=== PATIENT | female | born 1980 | race Caucasian/White ===

== ENCOUNTER 2023-04-18 10:00 | Outpatient (AMB) | payer OTHER, SELFPAY ==
[2023-04-18 10:11] VITALS: BP 116/62; PULSE 57; O2SAT 98; BMI 26.3
--- NOTE | 2023-04-18 10:11 | MHC.PC.OV ---
Vital Signs 04/18/23 10:11 Height 5 ft 5 in Weight 158 lb 2 oz BMI 26.3 BP 116/62 Blood Pressure Location Lt brachial Position Sitting Pulse 57 Pulse Source Pulse Oximeter Pulse Oximetry (%) 98 Oxygen Delivery Method Room Air Intake Visit Reasons: New patient-requesting physical Intake Note: Patient is here as a new patient would like thyroid check and hormones. Is last menstrual period known: Yes Last menstrual period: 03/25/23 Patient : No Allergies penicllin Allergy (Unknown, Uncoded 04/18/23 10:15) unknown Tobacco use date assessed: 04/18/23 Dental Screening Dental Screen Date: 04/18/23 Did you have a dental visit in the last 12 months?: Yes Did you have a dental problem in the last 6 months where you did not have access to dental care?: No Was dental information given to patient?: Patient has dentist HPI New patient-requesting physical HPI Details New patient Prior PCP:? PCP was [facility] in [facility] Last office visit/CPE:1 yr ago Acute issue(s): Menomettorhagia Saw Classifier Tender and no cause found. Started OCP x a few mos and normalized but not becoming irreg again Thyroid nodules L lobes and recommended repat US in 1 yr PMHx: Thyroid nodules, Irreg periods SurgHx:None FHx: Mom: Fibroids, Uterine CA, HTN Obesity. Dad: DM. SocHx: Nonsmoker, EtOH Occassional 1-2 dr[address] ALTAMIRANO none & no drugs PFSH Family History (Updated 04/18/23 @ 10:27 by Tracy Hoskins CMA) Mother High blood pressure Father Diabetes Paternal Grandmother High blood pressure Social History (Updated 04/18/23 @ 10:19 by Tracy Hoskins CMA) Household Members: Significant Other Housing: House Are you a primary childcare teacher to a significant other at home: No Do you presently have visiting nurse or other home services: No Alcohol intake: current Patient Tobacco Use Status: Never used Tobacco e-Cigarette/Vaping Use: Never Used Special nilam needs: No service: No Current occupational status: employed 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 1. Little interest or pleasure in doing things: not at all 2. Feeling down, depressed, or hopeless: not at all 3. Trouble falling or staying asleep, or sleeping too much: not at all 4. Feeling tired or having little energy: not at all 5. Poor appetite or overeating: not at all 6. Feeling bad about yourself - or that you are a failure or have let yourself or your family down: not at all 7. Trouble concentrating on things, such as reading the newspaper or watching television: not at all 8. Moving or speaking so slowly that other people could have noticed. Or the opposite - being so fidgety or restless that you have been moving around a lot more than usual: not at all 9. Thoughts that you would be better off or of hurting yourself in some way: not at all Total score: 0 Source: Developed by Drs. Srini Garcia, Gail Culp, Clifford Kern and colleagues, with an educational mariajose from [employer]. Thrive Questionnaire I am a: Patient What is your living situation today?: I have a steady place to live Within the past 12 months, did the food you bought not last and you didn't have the money to get more?: Never true Within the past 12 months, did you worry whether your food would run out before you got money to buy more?: Never true Do you have trouble paying for medicines?: No Do you have trouble getting transportation to medical appointments?: No Do you have trouble paying your heating and electricity bill?: No Do you have trouble taking care of your child, family member or friend?: No Do you have trouble with day-to-day activities such as bathing, preparing meals, shopping, managing finances, etc.?: No Are you currently unemployed and looking for a job?: No Are you interested in more education?: No LITA-7 AMB Questionnaire LITA-7 Feeling nervous, anxious, or on edge: 2 = More than half the days Not being able to stop or control worryin = More than half the days Worrying too much about different things: 3 = Nearly every day Trouble relaxin = More than half the days Being so restless that it is hard to sit still: 1 = Several days Becoming easily annoyed or irritable: 2 = More than half the days Feeling afraid as if something awful might happen: 1 = Several days Total LITA-7 score (0-4 normal; 5-9 mild; 10-14 moderate; 15-21 severe): 13 Source: Developed by Drs. Srini Garcia, Gail Culp, Clifford Kern and colleagues, with an educational mariajose from [employer]. Review of Systems Const Denies chills, Denies fatigue, Denies fever(s), Denies headache(s) and Denies weakness ENT Denies dizziness and Denies headache(s) Card Denies chest pain, Denies lightheadedness, Denies dyspnea and Denies other (Palpitations) Resp Denies cough, Denies dyspnea, Denies wheezing and Denies other ( shortness of breath) Musc Denies numbness and Denies tingling Neuro Denies dizziness, Denies headache(s), Denies numbness, Denies tingling, Denies paresthesias and Denies weakness Psych Denies anxiety and Denies depression Endo Denies fatigue Aller/Immun Denies wheezing Physical exam (Primary Care) Vital Signs: Last Vital Signs Pulse 57 04/18/23 10:11 BP 116/62 04/18/23 10:11 Pulse Ox 98 04/18/23 10:11 Oxygen Delivery Method Room Air 04/18/23 10:11 BMI result Body Mass Index 26.3 Tobacco/Smoking Status: Tobacco use Status Tobacco use date assessed 04/18/23 04/18/23 10:32 Patient Tobacco Use Status Never used Tobacco 04/18/23 10:32 e-Cigarette/Vaping Use Never Used 04/18/23 10:32 PHQ-9: PHQ-9 Score PHQ-9: Total score 0 04/18/23 11:03 Const General: no acute distress and well developed Nutritional Appearance: well nourished Orientation/consciousness: patient oriented x3 HENMT Head: Yes normocephalic and Yes atraumatic Eyes General: appearance normal, both eyes and all related structures Pupils: Equal, round and reactive pupils present EOM: EOMs intact bilaterally Resp Effort & Inspection: normal respiratory effort Auscultation: clear to auscultation bilaterally Cardio Rate: regular rate Rhythm: regular rhythm Heart sounds: S1 normal heart sound present, S2 normal heart sound present, no gallops, no murmurs and no rubs Neuro General: patient oriented x3 and gait normal Cranial nerves: Yes Equal, round and reactive pupils present Psych Affect: normal affect Assessment and Plan Assessment & Plan (1) Thyroid nodule: Code(s): E04.1 - Nontoxic single thyroid nodule Plan: History?of?left?thyroid?nodules?seen?on?ultrasound?when?year?ago and?radiology?recommended?repeat?in?1?year. Ordered?repeat?thyroid?ultrasound Requesting?prior?records?for?comparison (2) Menometrorrhagia: Code(s): N92.1 - Excessive and frequent menstruation with irregular cycle Plan: Referred?to?dehairing machine tender Checking?hormone?level (3) Breast cancer screening by mammogram: Code(s): Z. - Encounter for screening mammogram for malignant neoplasm of breast Plan: Patient?requests?order?for?mammogram.??Ordered. Last?year's?mammogram?was?BI-RADS?2?and?recommended?annual?screening. (4) Laboratory exam ordered as part of routine general medical examination: Code(s): Z00.00 - Encounter for general adult medical examination without abnormal findings Plan: Check?lab Orders: Orders Microalbumin, Random (w Creat) Today I10 - Essential (primary) hypertension UA and rflx microscopic Today Z00.00 - Encounter for general adult medical examination without abnormal findings Complete Blood Count Auto Diff Today Z00.00 - Encounter for general adult medical examination without abnormal findings Lutenizing Hormone Today N92.1 - Excessive and frequent menstruation with irregular cycle Follicle Stimulating Hormone Today N92.1 - Excessive and frequent menstruation with irregular cycle Comprehensive Hooper. Panel Fast Today Z00.00 - Encounter for general adult medical examination without abnormal findings Lipid Panel Today Z00.00 - Encounter for general adult medical examination without abnormal findings TSH reflex Free T4 Today Z00.00 - Encounter for general adult medical examination without abnormal findings US thyroid Today E04.1 - Nontoxic single thyroid nodule MM tomosynthesis screening BI Today Z12.31 - Encounter for screening mammogram for malignant neoplasm of breast Referrals AUTOMATIC CIGAR WRAPPER TENDER Referral N92.1 - Excessive and frequent menstruation with irregular cycle Coding Level of Care Code New Pt Level 3 (08997) Diagnoses Thyroid nodule E04.1 Menometrorrhagia N92.1 Breast cancer screening by mammogram Z12.31 Laboratory exam ordered as part of routine general medical examination Z00.00
== END 2023-04-18 11:20 | disposition home or self-care (01) ==
PROVIDERS: PCP Family Medicine; Visit Provider Family Medicine
DX: E04.1 Nontoxic single thyroid nodule (principal); N92.1 Excessive and frequent menstruation with irregular cycle; Z12.31 Encounter for screening mammogram for malignant neoplasm of breast; Z00.00 Encounter for general adult medical examination without abnormal findings
CPT/HCPCS: 99203

== ENCOUNTER 2023-04-18 11:24 | Outpatient (REF) | payer OTHER, SELFPAY ==
[2023-04-18 14:25] LABS: MANUAL DIFF FLAG NO
[2023-04-18 14:33] LABS: Appearance Urine Clear; Color Urine Yellow; Glucose Urine UA Negative (Negative); Leukocyte Esterase Urine Negative (Negative); Nitrite Urine Negative (Negative); PH 7.5 (5.0-9.0); UMIC TRIGGER UA YES; Urine Blood Small (1+) (Negative); Urine Ketones Negative (Negative); Urine Protein Negative (Neg-Trace)
[2023-04-18 14:36] LABS: Bacteria Urine None Seen (None Seen); Hyaline Casts Urine 0-2 /LPF (0-2); Squamous Epithelial Cell Urine 0-2 /HPF (0-2); WBC Urine 0-5 /HPF (0-5)
[2023-04-18 14:38] LABS: Basophils Absolute Auto 0.1 X10*3/uL (0.0-0.2); Basophils Percent Auto 1.1 % (0-2); Eosinophils Absolute Auto 0.2 X10*3/uL (0.0-0.4); Eosinophils Percent Auto 2.3 % (0-4); Hematocrit 34.4 % (37.0-47.0); Hemoglobin 10.6 g/dl (12.0-16.0); Imm Gran Abs Auto 0.01 X10*3/uL (0.00-0.03); Imm Gran Pct Auto 0.2 % (0.0-0.4); Lymphocytes Percent Auto 29.7 % (20-40); Mean Corpuscular HGB Conc 30.8 g/dl (31.0-35.0); Mean Corpuscular Hemoglobin 26.5 pg (27.0-33.0); Mean Platelet Volume 11.1 fL (9.4-12.3); Monocytes Absolute Auto 0.6 X10*3/uL (0.1-1.2); Monocytes Percent Auto 9.4 % (2-11); Neutrophils Absolute Auto 3.8 x10*3/uL (2.0-8.3); Neutrophils Percent Auto 57.3 % (45-73); Platelet Count 404 X10*3/uL (160-400); Red Cell Distribution Width 13.7 % (11.0-16.0); White Blood Count 6.6 X10*3/uL (4.8-10.8)
[2023-04-18 14:57] LABS: Alanine Aminotransferase 11 U/L (0-31); Albumin Level 4.1 g/dL (3.5-5.0); Alkaline Phosphatase 56 U/L (39-117); Anion Gap 14 (12-20); Aspartate Amino Transferase 19 U/L (5-31); Bilirubin Total 0.3 mg/dL (0.0-1.0); Blood Urea Nitrogen 12 mg/dL (9-16); Calcium 9.1 mg/dL (8.4-10.2); Carbon Dioxide 21 mmol/L (22-29); Chloride 108 mmol/L (96-108); Cholesterol 162 mg/dL (<200); Estimated Glomerular Filt Rate > 60; Glucose Fasting 86 mg/dL (60-99); HDL Cholesterol 65 mg/dL (>40); LDL Cholesterol Calculated 88 mg/dL (<100); Potassium 3.9 mmol/L (3.3-5.1); Sodium 139 mmol/L (135-145); Total Protein 7.2 g/dL (6.5-8.0); Triglycerides 48 mg/dL (<150)
[2023-04-18 15:17] LABS: TSH reflex Free T4 2.37 uIU/mL (0.32-4.0)
[2023-04-18 16:09] LABS: Creatinine Urine 115.61 mg/dL; Microalbum/Creatinine Ratio Ur 5.1 ug/mg cr (<30)
[2023-04-20 02:22] LABS: Lutenizing Hormone 27.9 mIU/mL
== END 2023-04-18 11:25 | disposition home or self-care (01) ==
LOC: HO.WFDLDS 11:24
PROVIDERS: Visit Provider Family Medicine
DX: Z00.00 Encounter for general adult medical examination without abnormal findings (principal); N92.1 Excessive and frequent menstruation with irregular cycle; I10 Essential (primary) hypertension
CPT/HCPCS: 36415; 80053; 80061; 81001; 82043; 82570; 83001; 83002; 84443; 85025

== ENCOUNTER 2023-05-09 10:51 | Outpatient (REF) | payer OTHER, SELFPAY ==
--- NOTE | ~2023-05-09 | MM_ITS ---
EXAMINATION: MM SCREENING DIGITAL BREAST TOMOSYNTHESIS, BILATERAL CLINICAL INFORMATION: Screening. Asymptomatic. COMPARISON: Mammography: This study is compared with prior exams dating back to 2021. TECHNIQUE: Digital breast tomosynthesis is performed in both the craniocaudal and mediolateral oblique views along with computer-aided detection (CAD). Synthesized 2D images are generated from the tomosynthesis. FINDINGS: The breasts are heterogeneously dense, which may obscure small masses (ACR BI-RADS breast composition Category c). There are no significant masses, abnormal calcifications, or other abnormalities. MM/MM tomosynthesis screening BI IMPRESSION: No mammographic evidence of malignancy. ASSESSMENT: BI-RADS BI-RADS 1 - Negative RECOMMENDATION: Routine annual mammography screening. 1 year F/U This examination should not preclude the clinical evaluation of a suspicious palpable abnormality. This patient's information was entered into a reminder system with a target due date for their next mammogram.
--- NOTE | ~2023-05-09 | US_ITS ---
EXAMINATION: US THYROID CLINICAL INFORMATION: Nontoxic single thyroid nodule. One-year follow up thyroid nodules. COMPARISON: None available. TECHNIQUE: Linear transducer grayscale and color Doppler examination with attention to the region of the thyroid. FINDINGS: SIZE: Measurements of the thyroid lobes and nodules are given in sagittal, anteroposterior and transverse dimensions respectively. Right Thyroid Lobe: 5.4 x 1.1 x 1.4 cm, volume 4.5 mL. Parenchyma: The gland echotexture is homogeneous. Thyroid vascularity is normal. Left Thyroid Lobe: 4.0 x 1.5 x 1.4 cm, volume 4.2 mL. Parenchyma: The gland echotexture is homogeneous. Thyroid vascularity is normal. Isthmus: 0.1 cm in maximum AP dimension. Estimated total number of nodules greater than or equal to 1 cm: 2. Supervisor Frame Assembly nodules are described as follows: 1. Location: Left mid pole. Size: 1.7 x 0.9 x 1.1 cm, volume 0.85 mL. Nodule characteristics: Composition: Mixed cystic and solid (1). Echogenicity: Isoechoic (1). Shape: Not taller than wide (0). Margins: Smooth (0). Echogenic Foci: None (0). ACR TI-RADS total points: 2 ACR TI-RADS category: 2 2. Location: Left lower pole. Size: 1.2 x 0.6 x 1.1 cm, volume 0.38 mL. Nodule characteristics: Composition: Solid (2). Echogenicity: Very hypoechoic (3). Shape: Not taller than wide (0). Margins: Smooth (0). Echogenic Foci: None (0). ACR TI-RADS total points: 5 ACR TI-RADS category: 4 NODES: No lymphadenopathy is seen in the tissue surrounding the thyroid gland. US/US thyroid IMPRESSION: Left thyroid lobe nodules are seen, as detailed. Recommend continued thyroid ultrasound surveillance. ACR TI-RADS RECOMMENDATION REFERENCE: Ultrasound-guided fine-needle aspiration, followup ultrasound, no further follow up. * TR1 (0 point) and TR2 (2 points): No FNA or follow up. * TR3 (3 points): FNA if more than or equal to 2.5 cm in maximum dimension, followup ultrasound in 1, 3 and 5 years if 1.5 to 2.4 cm in maximum dimension. * TR4 (4-6 points): FNA if more than or equal to 1.5 cm in maximum dimension, followup ultrasound in 1, 2, 3 and 5 years if 1 to 1.4 cm in maximum dimension. * TR5 (more than or equal to 7 points): FNA if more than or equal to 1 cm in maximum dimension, followup ultrasound every year for 5 years if 0.5 to 0.9 cm in maximum dimension. * TR3, TR4 or TR5 nodules that are below the size threshold for followup receive no follow up.
== END 2023-05-09 10:52 | disposition home or self-care (01) ==
LOC: HO.MAMMO 10:51
PROVIDERS: PCP Family Medicine; Visit Provider Family Medicine
DX: Z12.31 Encounter for screening mammogram for malignant neoplasm of breast (principal); E04.1 Nontoxic single thyroid nodule
CPT/HCPCS: 76536; 77063; 77067

== ENCOUNTER → 2023-05-09 11:45 | Outpatient (BNV) | payer OTHER, SELFPAY | PROVIDERS: PCP Family Medicine; Visit Provider Radiology Diagnostic Radiology | DX: Z12.31 Encounter for screening mammogram for malignant neoplasm of breast (principal) | CPT/HCPCS: 77063; 77067 ==

== ENCOUNTER 2023-05-23 07:37 | Outpatient (AMB) | payer OTHER, SELFPAY ==
--- NOTE | 2023-05-23 07:44 | MHC.OFFVIS ---
Intake Vital Signs 05/23/23 07:45 Height 5 ft 5 in Weight 156 lb 8.451 oz BMI 26.0 BP 110/60 Intake Visit Reasons: AUB/PCP referral Intake Note: skipping periods x 1 year ,c/o of heavy menses Paunch Trimmer Required: No Information Interpreted: non-clinical & clinical Business Continuity Specialist: Business Continuity Specialist Present (Sravani QIU) Accompanied by: Self / Same As Patient Allergies penicllin Allergy (Unknown, Uncoded 05/23/23 07:49) unknown Is last menstrual period known: Yes Last menstrual period: 04/18/23 HPI HPI Comments History of Present Illness Details Presenting referred from her PCP regarding abnormal uterine bleeding over the last year or so. In addition the patient is complaining of vaginal discharge with no associated itching or vaginal odor. The following workup was done so far: H&H= 10.6/34.4 TSH normal FSH/LH in the menopausal range Mammogram done, results are still pending [facility] Medical History Irregular periods Family History Mother High blood pressure Father Diabetes Paternal Grandmother High blood pressure Social History Household Members: Significant Other Housing: House Are you a primary critical care paramedic to a significant other at home: No Do you presently have visiting nurse or other home services: No 75 years or older and lives alone: No Alcohol intake: current Patient Tobacco Use Status: Never used Tobacco e-Cigarette/Vaping Use: Never Used Special nilam needs: No service: No Current occupational status: employed 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 Cognitive needs: No Hearing needs: No Vision needs: No Female Reproductive History Menstrual Date of last menstrual period: 04/18/23 Review of Systems Const All systems reviewed & are unremarkable except as noted in HPI and below Card Reports as per HPI Resp Reports as per HPI GI Reports as per HPI and Reports no additional complaints Reports as per HPI Physical Exam Vital Signs: Last Vital Signs BP 110/60 05/23/23 07:45 BMI result Body Mass Index 26.0 Const General: cooperative, healthy appearing and comfortable Chest Chest palpation & inspection: normal inspection of the chest and normal palpation of entire chest wall Breast/axilla inspection: normal inspection of the breasts and normal inspection of the axillae Breast/axilla palpation: normal palpation of the breasts, normal palpation of the axillae and no axillary lymphadenopathy Resp Effort & Inspection: normal respiratory effort Auscultation: clear to auscultation bilaterally Percussion: percussion normal Cardio Palpation: normal PMI Rate: regular rate Rhythm: regular rhythm Heart sounds: no murmurs and no rubs Peripheral pulses: Peripheral pulses 2+ throughout GI Inspection: Yes normal to inspection Palpation (GI): Soft to palpation, nontender, no guarding, not rigid and No hepatosplenomegaly present Percussion: Yes normal to percussion Auscultation: normal bowel sounds Rectal Exam - Female: deferred General: Yes bladder normal to palpation External Female Exam: No lesion Speculum Exam - Vagina: normal appearance of the vagina, normal palpation, normal vaginal discharge and not erythematous Speculum Exam - Cervix: normal appearance of the cervix and normal palpation Bimanual exam- vagina & uterus: normal bimanual exam, normal palpation, uterine size normal, bladder normal to palpation, consistency normal and normal palpation Bimanual Exam- Adnexa, other: normal adnexae, no masses and no tenderness Assessment & Plan Assessment & Plan (1) Abnormal uterine bleeding (AUB): Comment: FSH/LH in menopause range Mild anemia Code(s): N93.9 - Abnormal uterine and vaginal bleeding, unspecified Plan: Iron sulfate 325 mg p.o. q.d. Co testing done, GC and chlamydia taken CBC, TSH, HCG, and pelvic ultrasound ordered. Discussed with the patient the different causes of abnormal bleeding including thyroid disorders, uterine and ovarian pathology, endometrial hyperplasia, carcinoma and other potential causes. Discussed with the patient the work up done including CBC (showing mild anemia anemia), normal TSH, elevated FSH/LH in the menopausal range, pelvic Ultrasound, endometrial biopsy to r/o endometrial pathology. All questions answered and the patient verbalized understanding. Instructed the patient to schedule an appointment for an endometrial biopsy in 2 weeks. (2) Vaginal discharge: Code(s): N89.8 - Other specified noninflammatory disorders of vagina Plan: GC/CT with BV panel taken will check the results and treat accordingly. Orders: Orders US pelvic and transvaginal Today N93.9 - Abnormal uterine and vaginal bleeding, unspecified CT NG by PCR Today N89.8 - Other specified noninflammatory disorders of vagina, N93.9 - Abnormal uterine and vaginal bleeding, unspecified Pap Smear Today N89.8 - Other specified noninflammatory disorders of vagina, N93.9 - Abnormal uterine and vaginal bleeding, unspecified Bacterial Vaginosis Panel Today N89.8 - Other specified noninflammatory disorders of vagina, N93.9 - Abnormal uterine and vaginal bleeding, unspecified Coding Level of Care Code New Pt Level 3 (61046) Diagnoses Abnormal uterine bleeding (AUB) N93.9 Vaginal discharge N89.8
[2023-05-23 07:45] VITALS: BP 110/60; BMI 26.0
== END 2023-05-23 08:07 | disposition home or self-care (01) ==
PROVIDERS: PCP Family Medicine; Visit Provider Obstetrics & Gynecology
DX: N93.9 Abnormal uterine and vaginal bleeding, unspecified (principal); N89.8 Other specified noninflammatory disorders of vagina
CPT/HCPCS: 99203

== ENCOUNTER 2023-05-23 07:37 | Outpatient (REF) | payer OTHER, SELFPAY ==
[2023-05-23 16:52] LABS: CT PCR NOT DETECTED (Not Detect.); NG PCR NOT DETECTED (Not Detect.)
[2023-05-24 13:12] LABS: BV Int Neg Control Negative (Negative); BV Int Pos Control Positive (Positive)
[2023-05-27 11:59] LABS: HPV mRNA E6/E7 rflx Not Detected (Not Detected)
== END 2023-05-23 07:38 | disposition home or self-care (01) ==
LOC: HO.LNP 07:37
PROVIDERS: PCP Family Medicine; Visit Provider Obstetrics & Gynecology
DX: N93.9 Abnormal uterine and vaginal bleeding, unspecified (principal); N89.8 Other specified noninflammatory disorders of vagina
CPT/HCPCS: 0353U; 87480; 87510; 87624; 87660; 88142; 99202

== ENCOUNTER 2023-06-13 14:13 | Outpatient (REF) | payer OTHER, SELFPAY ==
--- NOTE | ~2023-06-13 | US_ITS ---
EXAMINATION: US PELVIS COMPLETE CLINICAL INFORMATION: Abnormal uterine bleeding COMPARISON: None TECHNIQUE: Transabdominal and transvaginal imaging was performed. FINDINGS: The uterus is of normal size and echogenicity measuring 8.5 x 4.1 x 5.0 cm. A regular homogeneous endometrium is identified measuring 0.7 cm. Nabothian cysts in the cervix. Both ovaries are of normal size and echogenicity. The right measures 2.5 x 1.6 x 1.1 cm for a volume of 2.4 mL. The left measures 3.9 x 2.0 x 2.3 cm for a volume of 9.5 mL. There is trace simple physiologic volume pelvic free fluid. US/US pelvic and transvaginal IMPRESSION: Unremarkable pelvic ultrasound.
== END 2023-06-13 14:14 | disposition home or self-care (01) ==
LOC: HO.US 14:13
PROVIDERS: PCP Family Medicine; Visit Provider Obstetrics & Gynecology
DX: N93.9 Abnormal uterine and vaginal bleeding, unspecified (principal)
CPT/HCPCS: 76830; 76856

== ENCOUNTER 2023-07-11 10:55 | Outpatient (AMB) | payer OTHER, SELFPAY ==
--- NOTE | 2023-07-11 11:03 | A.OFFPC_ITS ---
Vital Signs 07/11/23 11:04 Height 5 ft 5 in Weight 161 lb BMI 26.8 BP 90/48 L Blood Pressure Location Lt brachial Position Sitting Respiration 13 Pulse 61 Pulse Source Pulse Oximeter Pulse Oximetry (%) 99 Oxygen Delivery Method Room Air Intake Visit Reasons: Extended exam with f/u labs and health maint Intake Note: Patient is here for her physical, she had labs done in April of 2023. Patient reports she had a pelvic ultrasound and a thyroid ultrasound that she has not heard results back from yet. Patient reports she takes benedryl at night to fall asleep. Patient would like a referral to see an eye doctor. Patient would like a referral for therapy. 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 Labs were drawn 04/18/23. Reviewed labs with pt. Mild anemia. She reports she has always had this. Triglycerides 48. TC 162. LDL 88. HDL 65. Pt scores high on her PHQ-9 and LITA-7 questionnaires today. She is not on any medications for anxiety/depression. She reports she is currently going through separation and is also not been getting enough sleep. She reports she does not have a therapist and would like a referral to one. Denies any SI/HI. Hx of L thyroid nodules seen on ultrasound. Thyroid ultrasound 05/09/23 - L thyroid lobe nodules seen and recommended continued thyroid ultrasound surveillance. She f/u with [facility] July. She reports she has not had her period since April. Pt reports she exercises regularly. [facility] Medical History Irregular periods Family History Mother High blood pressure Father Diabetes Paternal Grandmother High blood pressure Social History (Updated 07/11/23 @ 11:17 by Nayeli Parsons CMA) Household Members: Significant Other Housing: House Are you a primary child care worker to a significant other at home: No Do you presently have visiting nurse or other home services: No 75 years or older and lives alone: No Alcohol intake: current Alcohol intake frequency: holidays/special occasions only Patient Tobacco Use Status: Never used Tobacco e-Cigarette/Vaping Use: Never Used Special nilam needs: No service: No Current occupational status: employed 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 1. Little interest or pleasure in doing things: several days 2. Feeling down, depressed, or hopeless: nearly every day 3. Trouble falling or staying asleep, or sleeping too much: nearly every day 4. Feeling tired or having little energy: nearly every day 5. Poor appetite or overeating: more than half the days 6. Feeling bad about yourself - or that you are a failure or have let yourself or your family down: several days 7. Trouble concentrating on things, such as reading the newspaper or watching television: nearly every day 8. Moving or speaking so slowly that other people could have noticed. Or the opposite - being so fidgety or restless that you have been moving around a lot more than usual: not at all 9. Thoughts that you would be better off or of hurting yourself in some way: not at all Total score: 16 Depression Screening Interpretation: Positive (Referring?for?therapist?and?starting?SSRI?medication) Depression Screening Done: Yes Source: Developed by Drs. Srini Garcia, Gail Culp, Clifford Kern and colleagues, with an educational mariajose from [employer]. Thrive Questionnaire Date Thrive assessed: 07/11/23 I am a: Patient What is your living situation today?: I have a steady place to live Within the past 12 months, did the food you bought not last and you didn't have the money to get more?: Never true Within the past 12 months, did you worry whether your food would run out before you got money to buy more?: Never true Do you have trouble paying for medicines?: No Do you have trouble getting transportation to medical appointments?: No Do you have trouble paying your heating and electricity bill?: No Do you have trouble taking care of your child, family member or friend?: No Do you have trouble with day-to-day activities such as bathing, preparing meals, shopping, managing finances, etc.?: No Are you currently unemployed and looking for a job?: No Are you interested in more education?: No Please select the resources that you would like help with: None Currently or been in a relationship where the following occur: no concerns reported AUDIT C Alcohol Use Questionnaire (AUDIT-C) 1. How often do you have a drink containing alcohol?: Never 3. How often do you have six or more drinks on one occasion?: Never Total Score: 0 LITA-7 AMB Questionnaire LITA-7 Date LITA - 7 assessed: 07/11/23 Feeling nervous, anxious, or on edge: 3 = Nearly every day Not being able to stop or control worryin = Not at all Worrying too much about different things: 3 = Nearly every day Trouble relaxin = Nearly every day Being so restless that it is hard to sit still: 3 = Nearly every day Becoming easily annoyed or irritable: 3 = Nearly every day Feeling afraid as if something awful might happen: 0 = Not at all Total LITA-7 score (0-4 normal; 5-9 mild; 10-14 moderate; 15-21 severe): 15 Source: Developed by Drs. Srini Garcia, Gail Culp, Clifford Kern and colleagues, with an educational mariajose from [employer]. LITA-7 Assessment Billing LITA-7 Assessment Tool: LITA-7 Assessment 89939 Review of Systems Const Denies chills, Denies fatigue, Denies fever(s), Denies headache(s) and Denies weakness Eyes Denies change in vision ENT Denies dizziness, Denies headache(s), Denies hearing loss, Denies nasal congestion, Denies sinus pain, Denies sinus pressure and Denies sore throat Card Denies chest pain, Denies lightheadedness, Denies dyspnea and Denies other (palpitations) Resp Denies cough, Denies dyspnea and Denies wheezing GI Denies abdominal pain, Denies melena, Denies hematochezia, Denies change in bowel habits, Denies dyspepsia and Denies nausea Denies hematuria and Denies dysuria Musc Denies abnormal gait, Denies myalgias, Denies arthralgias, Denies numbness and Denies tingling Skin/Breast Denies rash, Denies unusual bruising and Denies wounds Neuro Denies abnormal gait, Denies dizziness, Denies headache(s), Denies memory loss, Denies numbness, Denies Sensory deficit (Neuro), Denies tingling and Denies weakness Psych Reports anxiety, Reports depression and Denies memory loss Endo Denies cold intolerance, Denies fatigue, Denies heat intolerance, Denies polydipsia and Denies polyuria Akin/Lymph Denies easy bleeding and Denies easy bruising Aller/Immun Denies wheezing Physical exam (Primary Care) Vital Signs: Last Vital Signs Pulse 61 07/11/23 11:04 Resp 13 07/11/23 11:04 BP 90/48 L 07/11/23 11:04 Pulse Ox 99 07/11/23 11:04 Oxygen Delivery Method Room Air 07/11/23 11:04 BMI result Body Mass Index 26.8 Tobacco/Smoking Status: Tobacco use Status Tobacco use date assessed 07/11/23 07/11/23 11:14 Patient Tobacco Use Status Never used Tobacco 07/11/23 11:17 e-Cigarette/Vaping Use Never Used 07/11/23 11:17 PHQ-9: PHQ-9 Score PHQ-9: Total score 16 07/11/23 11:20 Depression Screening Interpretation: Positive (Referring?for?therapist?and?starting?SSRI?medication) Thrive Assessment: Date of Thrive Assessment Date Thrive assessed 07/11/23 07/11/23 11:20 Currently or been in a relationship where the following occur: no concerns reported Const General: no acute distress, well developed, alert and awake Nutritional Appearance: well nourished Orientation/consciousness: patient oriented x3 HENMT Head: Yes normocephalic and Yes atraumatic Ears: hearing grossly normal bilaterally and TM's normal bilaterally General nose exam: Normal external nose present and Normal nares present Mouth: Normal oral and palatal mucosa present and moist mucous membranes Teeth and gingiva: dentition normal Throat: Yes posterior oropharynx normal Eyes General: appearance normal, both eyes and all related structures Pupils: Equal, round and reactive pupils present and Pupil accommodation reflex normal EOM: EOMs intact bilaterally Neck Neck: Yes normal visual inspection, Yes no lymphadenopathy and Yes trachea midline Thyroid: Thyroid normal Carotids: no bruits Lymphatic: no lymphadenopathy noted Chest Chest palpation & inspection: normal inspection of the chest Resp Effort & Inspection: normal respiratory effort Auscultation: clear to auscultation bilaterally Cardio Rate: regular rate Rhythm: regular rhythm Heart sounds: S1 normal heart sound present, S2 normal heart sound present, no gallops, no murmurs and no rubs Bruits: no abdominal aortic bruits and no carotid bruits GI Palpation (GI): No Abdominal aortic bruit present, Soft to palpation, nontender, No hepatosplenomegaly present and No Rebound tenderness present Auscultation: normal bowel sounds General: Yes no CVA tenderness Back/Spine/Pelvis Back: no CVA tenderness Cervical Spine: cervical ROM normal and No Cervical spine tenderness Thoracic/Lumbar Spine: thoraco-lumbar ROM normal, No pain with thoraco-lumbar ROM, No thoracic spinal tenderness and No lumbar spinal tenderness Skin Lesions: no lesions Rashes: no rashes Trauma: no lacerations or abrasions Wounds: no wounds Nails: normal Neuro General: patient oriented x3 Cranial nerves: Yes Equal, round and reactive pupils present Cognition (Neuro): normal cognition Gait exam (Neuro): Normal gait present Motor exam (neuro): 5/5 motor strength present throughout Sensory Exam: No Sensory deficit (Neuro) Deep tendon reflexes (DTR's): Right patellar reflex intensity grade: 2+ and Left patellar reflex intensity grade: 2+ Extrem General: Yes normal to inspection and No edema Psych Appearance: grossly normal Affect: normal affect Attitude: cooperative Thought process: Normal thought process present Assessment and Plan Assessment & Plan (1) Depression with anxiety: Code(s): F41.8 - Other specified anxiety disorders Plan: Denies?SI?HI Increased?stressors?as?she?is?going?through?a?divorce Will?refer?for?therapist?and?will?start?sertraline. (2) Thyroid nodule: Code(s): E04.1 - Nontoxic single thyroid nodule Plan: Recent?ultrasound?recommends?continued?surveillance. Ultrasound?ordered?for?6?months (3) Irregular periods: Code(s): N92.6 - Irregular menstruation, unspecified Plan: Patient?had?had?regular?periods?and?these?have?stopped? Will?recheck?H&H She?should?follow-up?with?wire rope sales representative?as?recommended (4) Mild anemia: Code(s): D64.9 - Anemia, unspecified Plan: As?above,?patient?notes?that?periods?have?stopped. Will?continue?to?follow?H&H (5) Breast cancer screening by mammogram: Code(s): Z12.31 - Encounter for screening mammogram for malignant neoplasm of breast Plan: Mammogram?negative.??Will?continue?annual?screening (6) Screening for cervical cancer: Code(s): Z12.4 - Encounter for screening for malignant neoplasm of cervix Plan: Follow-up?with?wire rope sales representative?as?recommended (7) Adult general medical exam: Code(s): Z00.00 - Encounter for general adult medical examination without abnormal findings Plan: Stable Orders: Orders TSH reflex Free T4 Today E04.1 - Nontoxic single thyroid nodule, Z00.00 - Encounter for general adult medical examination without abnormal findings US thyroid 12/15/24 E04.1 - Nontoxic single thyroid nodule Complete Blood Count Auto Diff Today D64.9 - Anemia, unspecified, Z00.00 - Encounter for general adult medical examination without abnormal findings Referrals Nurse Navigator Referral F41.8 - Other specified anxiety disorders Medications: New sertraline 50 mg PO DAILY 30 tabs 2RF 30 days Coding Level of Care Code Est Pt Level 4 (32470) Diagnoses Depression with anxiety F41.8 Thyroid nodule E04.1 Irregular periods N92.6 Mild anemia D64.9 Breast cancer screening by mammogram Z12.31 Screening for cervical cancer Z12.4 Adult general medical exam Z00.00 Additional Codes LITA-7 Assessment Billing - LITA-7 Assessment Tool: LITA-7 Assessment 82854 ([id number])
[2023-07-11 11:04] VITALS: BP 90/48; PULSE 61; RESP 13; O2SAT 99; BMI 26.8
== END 2023-07-11 11:50 | disposition home or self-care (01) ==
PROVIDERS: PCP Family Medicine; Visit Provider Family Medicine
DX: Z00.00 Encounter for general adult medical examination without abnormal findings (principal); F41.8 Other specified anxiety disorders; E04.1 Nontoxic single thyroid nodule; N92.6 Irregular menstruation, unspecified; D64.9 Anemia, unspecified
CPT/HCPCS: 96127; 99214; 99396

== ENCOUNTER 2023-10-03 08:35 | Outpatient (AMB) | payer OTHER, SELFPAY ==
--- NOTE | 2023-10-03 08:49 | MHC.OFFVIS ---
Intake Vital Signs 10/03/23 08:56 Height 5 ft 6 in Weight 156 lb BMI 25.2 BP 118/68 Blood Pressure Location Lt brachial Position Sitting Intake Visit Reasons: US follow up/DO NOT RS Occupational Medicine Officer Required: No Information Interpreted: non-clinical & clinical Supervisor Film Processing: Supervisor Film Processing Present Accompanied by: Self / Same As Patient Allergies penicllin Allergy (Unknown, Uncoded 10/03/23 08:55) unknown Is last menstrual period known: Yes (last month) Post menopausal: Yes Patient : No HPI HPI Comments History of Present Illness Details Presenting for [facility] Medical History Irregular periods Family History Mother High blood pressure Father Diabetes Paternal Grandmother High blood pressure Social History Household Members: Significant Other Housing: House Are you a primary animal caregiver to a significant other at home: No Do you presently have visiting nurse or other home services: No 75 years or older and lives alone: No Alcohol intake: current Alcohol intake frequency: holidays/special occasions only Patient Tobacco Use Status: Never used Tobacco e-Cigarette/Vaping Use: Never Used Special nilam needs: No Patient : No service: No Current occupational status: employed 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 Current occupational exposures/hazards: No Sexual orientation: Unable to collect Gender identity: Unable to collect Cognitive needs: No Hearing needs: No Vision needs: Yes (Patient has a difficult time with night vision.) Review of Systems Const All systems reviewed & are unremarkable except as noted in HPI and below Reports as per HPI and Reports no additional complaints GI Reports no additional complaints Reports no additional complaints Physical Exam Vital Signs: Last Vital Signs BP 118/68 10/03/23 08:56 BMI result Body Mass Index 25.2 Office Procedures Endometrial Biopsy Details: The patient was counseled regarding the indication and benefits of endometrial sampling to rule out endometrial pathology including not limited to endometrial hyperplasia or endometrial cancer and others; The alternatives (Either do nothing vs. hysteroscopy D&C) & the risks were discussed with the patient including but not limited: pain, uterine perforation, bleeding, infection, possible injury to bladder, bowel, ureter, possible need for blood transfusion with all its possible risks. The patient verbalized understanding all questions answered and signed consent. Urine test done in the office was negative The patient was placed into the dorsal lithotomy position; a speculum was inserted in the vagina. Using aseptic technique for the procedure, the cervix was cleansed with Betadine. The anterior lip of the cervix was grasped with a single tooth tenaculum. The uterus was sounded to 7 cm with a 4 mm Pipelle was used. Tissues samples were obtained and placed in formalin, in a patient labeled container and sent to the pathology department. At the end of the procedure, there was minimal bleeding noted The patient tolerated the procedure well and was discharged in good condition with the following instructions: Nothing in the vagina until the bleeding stops. No sex until the bleeding stops, to call if any of the following occurs: fever (>100.4), flu-like symptoms, abdominal pain, heavy bleeding, four smelling vaginal discharge. The patient was instructed to schedule a Follow up appointment in 2 weeks to discuss pathology results of the biopsy and treatment options. This note was generated with a voice recognition program. Some errors may have been overlooked during the review of this note. Sometimes these errors may affect the content or meaning of a given sentence. [id number] Biopsy Results AMB Test Urine AMB Test Urine Negative Last Edit by Dolly Miller MA on 10/03/23 09:02 Results Reviewed Results Reviewed: Laboratory Last Values Tst Clinic Negative 10/03/23 09:01 Assessment & Plan Assessment & Plan (1) Abnormal uterine bleeding (AUB): Comment: FSH/LH in menopause range Mild anemia Code(s): N93.9 - Abnormal uterine and vaginal bleeding, unspecified Plan: EMB done, see procedure Orders: Orders AMB HCG Urine Test Today Z32.02 - Encounter for test, result negative AMB Endometrial Biopsy Today N93.9 - Abnormal uterine and vaginal bleeding, unspecified Coding Level of Care Code Procedure Only Diagnoses Abnormal uterine bleeding (AUB) N93.9 CPT Codes Endometrial Biopsy - CPT: 94596-[id number] Biopsy ([id number])
[2023-10-03 08:56] VITALS: BP 118/68; BMI 25.2
== END 2023-10-03 09:17 | disposition home or self-care (01) ==
PROVIDERS: PCP Family Medicine; Visit Provider Obstetrics & Gynecology
DX: N93.9 Abnormal uterine and vaginal bleeding, unspecified (principal); Z32.02 Encounter for pregnancy test, result negative
CPT/HCPCS: 58100

== ENCOUNTER 2023-10-03 08:35 | Outpatient (REF) | payer OTHER, SELFPAY | END 2023-10-03 08:36 | disposition home or self-care (01) | LOC: HO.LNP 08:35 | PROVIDERS: PCP Family Medicine; Visit Provider Obstetrics & Gynecology | DX: N93.9 Abnormal uterine and vaginal bleeding, unspecified (principal) | CPT/HCPCS: 58100; 81025; 88305 ==

== ENCOUNTER 2023-10-09 08:10 | Outpatient (REF) | payer OTHER, SELFPAY ==
[2023-10-09 11:34] LABS: Appearance Urine Clear; Color Urine Yellow; Glucose Urine UA Negative (Negative); Leukocyte Esterase Urine Negative (Negative); Nitrite Urine Negative (Negative); PH 6.5 (5.0-9.0); UMIC TRIGGER UA YES; Urine Blood Moderate (2+) (Negative); Urine Ketones Negative (Negative); Urine Protein Negative (Neg-Trace)
[2023-10-09 11:46] LABS: MANUAL DIFF FLAG NO
[2023-10-09 11:50] LABS: Basophils Percent Auto 0.9 % (0-2); Eosinophils Absolute Auto 0.1 X10*3/uL (0.0-0.4); Eosinophils Percent Auto 1.9 % (0-4); Hematocrit 34.7 % (37.0-47.0); Imm Gran Abs Auto 0.01 X10*3/uL (0.00-0.03); Imm Gran Pct Auto 0.2 % (0.0-0.4); Lymphocytes Absolute Auto 1.5 X10*3/uL (1.2-4.9); Lymphocytes Percent Auto 32.2 % (20-40); Mean Corpuscular HGB Conc 31.7 g/dl (31.0-35.0); Mean Corpuscular Hemoglobin 26.1 pg (27.0-33.0); Mean Corpuscular Volume 82.4 fL (80.0-98.0); Mean Platelet Volume 10.9 fL (9.4-12.3); Monocytes Absolute Auto 0.4 X10*3/uL (0.1-1.2); Monocytes Percent Auto 8.8 % (2-11); Neutrophils Absolute Auto 2.6 x10*3/uL (2.0-8.3); Platelet Count 366 X10*3/uL (160-400); Red Blood Count 4.21 X10*6/uL (4.20-5.50); Red Cell Distribution Width 15.8 % (11.0-16.0); White Blood Count 4.7 X10*3/uL (4.8-10.8)
[2023-10-09 12:00] LABS: Bacteria Urine None Seen (None Seen); Calcium Oxalate Crystals Urine Present; Squamous Epithelial Cell Urine 0-2 /HPF (0-2); WBC Urine 0-5 /HPF (0-5)
[2023-10-09 12:17] LABS: TSH reflex Free T4 2.89 uIU/mL (0.32-4.0)
== END 2023-10-09 08:11 | disposition home or self-care (01) ==
LOC: HO.WFDLDS 08:10
PROVIDERS: Visit Provider Family Medicine
DX: Z00.00 Encounter for general adult medical examination without abnormal findings (principal); E04.1 Nontoxic single thyroid nodule; D64.9 Anemia, unspecified
CPT/HCPCS: 36415; 81001; 84443; 85025

== ENCOUNTER → 2023-10-24 16:39 | Outpatient (AMB) | payer OTHER, SELFPAY ==
--- NOTE | 2023-09-19 15:40 | MHC.PC.OV ---
Intake Visit Reasons: f/u labs Allergies penicllin Allergy (Unknown, Uncoded 08/01/23 14:00) unknown Tobacco use date assessed: 08/01/23 [facility] Medical History Irregular periods Family History Mother High blood pressure Father Diabetes Paternal Grandmother High blood pressure Social History Household Members: Significant Other Housing: House Are you a primary animal care service worker to a significant other at home: No Do you presently have visiting nurse or other home services: No 75 years or older and lives alone: No Alcohol intake: current Alcohol intake frequency: holidays/special occasions only Patient Tobacco Use Status: Never used Tobacco e-Cigarette/Vaping Use: Never Used Special nilam needs: No service: No Current occupational status: employed 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 Srini Garcia, Gail Culp, Clifford Kern and colleagues, with an educational marijaose from [employer]. Physical exam (Primary Care) Tobacco/Smoking Status: Tobacco use Status Tobacco use date assessed 07/11/23 07/11/23 11:14 Patient Tobacco Use Status Never used Tobacco 07/11/23 11:17 e-Cigarette/Vaping Use Never Used 07/11/23 11:17 Thrive Assessment: Date of Thrive Assessment Date Thrive assessed 07/11/23 07/11/23 11:20 Telehealth Telehealth Location of provider rendering services: practice address Location of patient: address on file Patient Identification confirmed using: Name, : Yes Telehealth method: voice only Patient verbally consented to treatment: Yes Patient verbally consented to billing insurance company: Yes Patient informed of any privacy concerns related to visit: Yes Coding
--- NOTE | 2023-10-24 16:32 | MHC.PC.OV ---
Intake Visit Reasons: f/u labs Intake Note: Patient is following up on her blood work today. Allergies penicllin Allergy (Unknown, Uncoded 10/24/23 16:35) unknown Medication List - Last Reconciled 10/24/23 by Raf English MD sertraline 50 mg PO DAILY 90 days Tobacco use date assessed: 10/24/23 Dental Screening Dental Screen Date: 10/24/23 HPI f/u labs HPI Details 42 y/o female presents to f/u labs via telemedicine. Labs were drawn 10/09/23. Reviewed labs with pt. Ongoing mild anemia, stable. [facility] Medical History Irregular periods Family History Mother High blood pressure Father Diabetes Paternal Grandmother High blood pressure Social History Household Members: Significant Other Housing: House Are you a primary summer child caregiver to a significant other at home: No Do you presently have visiting nurse or other home services: No 75 years or older and lives alone: No Alcohol intake: current Alcohol intake frequency: holidays/special occasions only Patient Tobacco Use Status: Never used Tobacco e-Cigarette/Vaping Use: Never Used Special nilam needs: No service: No Current occupational status: employed 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 Srini Garcia, Gail Culp, Clifford Kern and colleagues, with an educational mariajose from [employer]. Physical exam (Primary Care) Tobacco/Smoking Status: Tobacco use Status Tobacco use date assessed 10/24/23 10/24/23 16:37 Patient Tobacco Use Status Never used Tobacco 10/24/23 16:37 e-Cigarette/Vaping Use Never Used 10/24/23 16:37 Thrive Assessment: Date of Thrive Assessment Date Thrive assessed 07/11/23 10/24/23 16:37 Telehealth Telehealth Location of provider rendering services: practice address Location of patient: address on file Patient Identification confirmed using: Name, : Yes Telehealth method: voice only Patient verbally consented to treatment: Yes Patient verbally consented to billing insurance company: Yes Patient informed of any privacy concerns related to visit: Yes Minutes spent on Phone/Video with Pt.: 5 Assessment and Plan Assessment & Plan (1) Mild anemia: Code(s): D64.9 - Anemia, unspecified Plan: Mild?anemia?which?is?stable?and?may?have?improved?slightly Likely?secondary?to?abnormal?uterine?bleeding/irregular?periods. She?is?followed?by?Ed?[facility]?and?has?a?follow-up?appointment.??Had?recent?endometrial?biopsy. (2) Thyroid nodule: Code(s): E04.1 - Nontoxic single thyroid nodule Plan: History?of?thyroid?nodules. She?has?a?six-month?follow-up?ultrasound?in?December We?can?follow-up?shortly?thereafter?to?review TSH?remains?in?normal?range (3) Depression with anxiety: Code(s): F41.8 - Other specified anxiety disorders Plan: Patient?tried?sertraline?which?initially?was?helping?but?began?to?cause?increased?drowsiness?so?she?stopped?it Will?trial?a?lower?dose;?changing?sertraline?50?mg?daily?to?25?mg?daily If?she?runs?into?the?same?problem?she?can?discontinue?this?and?we?will?try?a?different?SSRI?at?her?next?appointment. Medications: Changed From sertraline 50 mg PO DAILY 90 days 90 tabs 2RF To sertraline 25 mg PO DAILY 90 days 90 tabs 2RF Coding Level of Care Code Tele Est Pt Level 2 (66385) Diagnoses Mild anemia D64.9 Thyroid nodule E04.1 Depression with anxiety F41.8
== END ==
PROVIDERS: PCP Family Medicine; Visit Provider Family Medicine
DX: D64.9 Anemia, unspecified (principal); E04.1 Nontoxic single thyroid nodule; F41.8 Other specified anxiety disorders
CPT/HCPCS: 99212

== ENCOUNTER 2023-11-07 08:24 | Outpatient (AMB) | payer OTHER, SELFPAY ==
[2023-11-07 08:27] VITALS: BMI 24.9
--- NOTE | 2023-11-07 08:27 | A.OFFVIS_ITS ---
Vital Signs 11/07/23 08:27 11/07/23 08:31 Height 5 ft 6 in 5 ft 6 in Weight 154 lb 5.177 oz 154 lb BMI 24.9 24.9 BP 86/52 L Intake Visit Reasons: EMB results Presidential Support Specialist Required: No Allergies penicllin Allergy (Unknown, Uncoded 11/07/23 08:31) unknown Is last menstrual period known: No Post menopausal: No HPI Comments Details: The patient is presenting for follow-up to discuss the results of her abnormal uterine bleeding workup and options of treatment. The following workup was done.: H&H= .7 TSH, hCG, GC and chlamydia were negative. FSH/LH 96/27.9 Endometrial biopsy pathology showed the following: Superficial fragments of benign proliferative endometrium; no atypia or carcinoma Co testing was done in 06/06 was negative. Mammogram was BI-RADS 1 Pelvic ultrasound was unremarkable. [facility] Medical History Irregular periods Family History Mother High blood pressure Father Diabetes Paternal Grandmother High blood pressure Social History Household Members: Significant Other Housing: House Are you a primary resident care aide to a significant other at home: No Do you presently have visiting nurse or other home services: No 75 years or older and lives alone: No Alcohol intake: current Alcohol intake frequency: holidays/special occasions only Patient Tobacco Use Status: Never used Tobacco e-Cigarette/Vaping Use: Never Used Special nilam needs: No service: No Current occupational status: employed 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 Current occupational exposures/hazards: No Sexual orientation: Unable to collect Gender identity: Unable to collect Cognitive needs: No Hearing needs: No Vision needs: Yes (Patient has a difficult time with night vision.) Female Reproductive History Menstrual control method: none Date of last pap smear: 05/23/23 (negative) Review of Systems Const All systems reviewed & are unremarkable except as noted in HPI and below Reports as per HPI and Reports no additional complaints GI Reports no additional complaints Reports no additional complaints Physical Exam Vital Signs: Last Vital Signs BP 86/52 L 11/07/23 08:31 BMI result Body Mass Index 24.9 Office Procedures IUD Insert/Removal Details Details: The patient is presenting for Mirena IUD insertion Urine test was done in the office and was negative; All the contraindications were excluded. The following possible complications were discussed with the patient: Intrauterine , Ectopic , Sepsis, Pelvic Infection, Irregular Bleeding and Amenorrhea, Perforation, Expulsion, Ovarian Cysts, Breast Cancer, The following adverse effects were discussed with the patient: alteration of menstrual bleeding pattern, including: unscheduled uterine bleeding decreased uterine bleeding increased scheduled uterine bleeding female genital tract bleeding ,amenorrhea , genital discharge , vulvovaginitis , breast pain , benign ovarian cyst and associated complications , dysmenorrhea , Gastrointestinal disorders abdominal/pelvic pain, headache/migraine , back pain , acne , depression Alternative options were discussed with the patient including but not limited: control pills, patch, NuvaRing, Depo-medroxyprogesterone acetate, Nexplanon, copper IUD, sterilization, vasectomy, others The procedure was explained in detail to patient , at the end patient signed the informed consent obtained. A no touch technique was used throughout the procedure. A speculum was placed into vagina and cervix was cleaned with betadine). A tenaculum was placed. A plastic sound was advanced through the external and internal os until it reached the fundus of the uterus, the depth was 8 cm. The sound was then withdrawn. The IUD was loaded in a sterile manner and advanced into position. The string was visualized and cut to 3 cm. Tenaculum site hemostatic. All instruments removed from vagina. Patient tolerated the procedure well. NO complications were noted. Patient was instructed to call for fever over 100.4, significant pain unrelieved by Motrin, IUD expulsion, heavy bleeding, or abnormal discharge. In addition, the following clinical considerations were discussed with the patient to call for removal: A stroke or heart attack ,Very severe or migraine headaches ,Unexplained fever ,Yellowing of the skin or whites of the eyes, as these may be signs of serious liver problems , or suspected , Pelvic pain or pain during sex ,HIV positive seroconversion in herself or her partner , Possible exposure to sexually transmitted infections Unusual vaginal discharge or genital sores , severe vaginal bleeding or bleeding that lasts a long time, or if she misses a menstrual period, Inability to feel Mirena's threads Counseled the patient that the IUD does not protect against STI's, recommended use of condoms for the first 7 days post insertion and explained to the patient that condoms are recommended for patients at risk for sexually transmitted infections. Informed the patient that Mirena IUD is FDA approved for 8 years for contraception for 5 years for the treatment of heavy menses/proliferative endometrium Instructed the patient to schedule a Follow up appointment in 4 to 6 weeks following insertion. This note was generated with a voice recognition program. Some errors may have been overlooked during the review of this note. Sometimes these errors may affect the content or meaning of a given sentence. 11950-GBX Insertion Procedure code (CPT) selection complete Office Meds Mirena 21 mcg/24 hours (8 yrs) 52 mg intrauterine device Performing Provider: Shree Osman MD Performing Location: [facility] Documented (not given) by: Shree Osman MD on 11/07/23 09:00 Dose Route Admin Location Dispensed Lot Number Expiration Date FORMERLY NAMED [facility] Extrusion Die Template Maker 1 device intrauterine ea Assessment & Plan Assessment & Plan (1) Abnormal uterine bleeding (AUB): Comment: FSH/LH in menopause range with proliferative endometrium on EMB pathology Mild anemia Code(s): N93.9 - Abnormal uterine and vaginal bleeding, unspecified Category: Medical Plan: Discussed with the patient the results of the pathology of the endometrial scrapings showing proliferative endometrium. Discussed with the patient the sensitivity, specificity, positive and negative predictive value, of endometrial biopsy in detecting endometrial pathology including but not limited to endometrial hyperplasia, cancer and other pathology; in addition discussed the patient the pathology of the endometrium in post menopause is associated with an increase in the risk of endometrial hyperplasia and malignancy in patient with preferred of endometrial pathology in menopause. Recommended to the patient progesterone treatment , levo norgestrel IUD for p.o. progestins in addition to repeat endometrial biopsy every 3 months for a year. All pros and cons, risks and benefits of each were discussed with the patient. The patient decided to proceed with Mirena IUD. so a more detailed discussion about it was conducted including mechanism of action, risks (uterine perforation, infection, injury to bladder, bowel, displacement, increase in the risk of breast cancer and others) benefits (decrease the risk of future endometrial hyperplasia and carcinoma of the endometrium ...). GC/CT were taken and were negative and the patient would like Mirena IUD insertion done today, Mirena IUD inserted, see procedure note ; in addition , recommended repeat endometrial biopsy every 3 months for 1 year. Instructed the patient to call in case is vaginal bleeding bleeding recurs, schedule endometrial biopsy in 3 months and IUD follow-up appointment within a month. All questions answered and the patient verbalized understanding and agreed with the plan. (2) Encounter for IUD insertion: Code(s): Z30.430 - Encounter for insertion of intrauterine contraceptive device Category: Medical Plan: Mirena IUD inserted, see procedure Orders: Orders AMB IUD Insertion/Removal - Practice Supplied Today N93.9 - Abnormal uterine and vaginal bleeding, unspecified Medications: New Mirena (levonorgestrel) 1 device intrauterine ONCE 1 ea 0RF NS N93.9 - Abnormal uterine and vaginal bleeding, unspecified Coding Level of Care Code Est Pt Level 3 (50161) Procedure Only Diagnoses Abnormal uterine bleeding (AUB) N93.9 Encounter for IUD insertion Z30.430 CPT Codes Details - CPT: 50882-ZGJ Insertion ([id number])
[2023-11-07 08:31] VITALS: BP 86/52; BMI 24.9
== END 2023-11-07 09:24 | disposition home or self-care (01) ==
PROVIDERS: PCP Family Medicine; Visit Provider Obstetrics & Gynecology
DX: N93.9 Abnormal uterine and vaginal bleeding, unspecified (principal); Z30.430 Encounter for insertion of intrauterine contraceptive device
CPT/HCPCS: 58300; 99213

== ENCOUNTER → 2023-11-07 08:24 | Outpatient (BNVA) | payer OTHER, SELFPAY | PROVIDERS: PCP Family Medicine; Visit Provider Obstetrics & Gynecology | DX: Z30.430 Encounter for insertion of intrauterine contraceptive device (principal); N93.9 Abnormal uterine and vaginal bleeding, unspecified | CPT/HCPCS: 58300; 99212; J7298 ==

== ENCOUNTER 2023-12-11 08:33 | Outpatient (AMB) | payer OTHER, SELFPAY ==
--- NOTE | 2023-12-11 08:53 | A.OFFVIS_ITS ---
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 The patient has no complaints periods are light and not painful. [facility] Medical History Irregular periods Family History Mother High blood pressure Father Diabetes Paternal Grandmother High blood pressure Social History Household Members: Significant Other Housing: House Are you a primary career discovery teacher to a significant other at home: No Do you presently have visiting nurse or other home services: No 75 years or older and lives alone: No Alcohol intake: current Alcohol intake frequency: holidays/special occasions only Patient Tobacco Use Status: Never used Tobacco e-Cigarette/Vaping Use: Never Used Special nilam needs: No service: No Current occupational status: employed 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 Current occupational exposures/hazards: No Sexual orientation: Unable to collect Gender identity: Unable to collect Cognitive needs: No Hearing needs: No Vision needs: Yes (Patient has a difficult time with night vision.) Review of Systems Const All systems reviewed & are unremarkable except as noted in HPI and below Physical Exam Vital Signs: Last Vital Signs BP 106/66 12/11/23 08:58 BMI result Body Mass Index 24.5 General: Yes no CVA tenderness External Female Exam: normal external appearance and normal appearance of the urethra Speculum Exam - Vagina: normal appearance of the vagina, normal palpation, no lesions and no masses Speculum Exam - Cervix: normal appearance of the cervix, normal palpation, no lesions, no masses, nontender and Other cervical findings present (IUD thread in place) Bimanual exam- vagina & uterus: normal bimanual exam, normal palpation, uterine size normal, normal palpation, uterine shape normal, No Cervical tenderness present and non-tender Bimanual Exam- Adnexa, other: normal adnexae Back/Spine/Pelvis Back: no CVA tenderness Results AMB Test Urine AMB Test Urine Negative Last Edit by Sravani Bradshaw CMA on 09:01 Results Reviewed Results Reviewed: Laboratory Last Values [facility]st Clinic Negative 12/11/23 09:01 Assessment & Plan Assessment & Plan (1) IUD check up: Code(s): Z30.431 - Encounter for routine checking of intrauterine contraceptive device Category: Medical Plan: UPT done in the office was negative. Discussed with the patient the finding on physical exam, IUD string in place, the patient was reassured. Instructions given to patient to call in case of temperature above 100.4, severe cramping/pelvic pain, abnormal discharge or abnormal uterine bleeding or if she misses her menstrual cycle. Otherwise follow-up at her annual exam appointment. All questions answered, the patient verbalized understanding. Orders: Orders AMB HCG Urine Test Today Z32.02 - Encounter for test, result negative Coding Level of Care Code Est Pt Level 3 (11214) Diagnoses IUD check up Z30.431
[2023-12-11 08:58] VITALS: BP 106/66; BMI 24.5
== END 2023-12-11 12:15 | disposition home or self-care (01) ==
PROVIDERS: PCP Family Medicine; Visit Provider Obstetrics & Gynecology
DX: Z30.431 Encounter for routine checking of intrauterine contraceptive device (principal); Z32.02 Encounter for pregnancy test, result negative
CPT/HCPCS: 99213

== ENCOUNTER → 2023-12-11 08:33 | Outpatient (BNVA) | payer OTHER, SELFPAY | PROVIDERS: PCP Family Medicine; Visit Provider Obstetrics & Gynecology | DX: Z30.431 Encounter for routine checking of intrauterine contraceptive device (principal) | CPT/HCPCS: 81025; 99212 ==

== ENCOUNTER 2023-12-19 08:58 | Outpatient (REF) | payer OTHER, SELFPAY ==
--- NOTE | ~2023-12-19 | US_ITS ---
EXAMINATION: US THYROID CLINICAL INFORMATION: Nontoxic single thyroid nodule. COMPARISON: Thyroid ultrasound 05/09/2023. TECHNIQUE: Linear transducer grayscale and color Doppler examination with attention to the region of the thyroid. FINDINGS: SIZE: Measurements of the thyroid lobes and nodules are given in sagittal, anteroposterior and transverse dimensions respectively. Right Thyroid Lobe: 4.7 x 1.5 x 1.3 cm, volume 4.6 mL. Previously 5.4 x 1.1 x 1.4 cm, volume 4.5 mL. Parenchyma: The gland echotexture is homogeneous. Thyroid vascularity is increased. Left Thyroid Lobe: 4.0 x 1.2 x 1.6 cm, volume 4.0 mL. Previously 4.0 x 1.5 x 1.4 cm, volume 4.2 mL. Parenchyma: The gland echotexture is homogeneous. Thyroid vascularity is increased. Isthmus: 0.2 cm in maximum AP dimension. Previously 0.1 cm. Estimated total number of nodules greater than or equal to 1 cm: 2. Rice Drier Operator nodules are described as follows: 1. Location: Left mid pole. Size: 1.4 x 0.70 x 1.1 cm, volume 0.60 mL. Previously: 1.2 x 0.60 x 1.1 cm, volume 0.38 mL. Nodule characteristics: Composition: Solid (2). Echogenicity: Hypoechoic (2). Shape: Not taller than wide (0). Margins: Smooth (0). Echogenic Foci: None (0). ACR TI-RADS total points: 4 Previous: 5 ACR TI-RADS category: 4 Previous: 4 Significant change in size (>/= 20% in 2 dimensions and minimal increase of 2 mm or 50% or greater increase in volume): No Change in features: No Change in ACR TI-RADS risk category: No 2. Location: Left upper/mid pole. Size: 1.7 x 0.70 x 1.2 cm, volume 0.70 mL. Previously: 1.7 x 0.90 x 1.1 cm, volume 0.85 mL. Nodule characteristics: Composition: Mixed cystic and solid (1). Echogenicity: Isoechoic (1). Shape: Not taller than wide (0). Margins: Smooth (0). Echogenic Foci: None (0). ACR TI-RADS total points: 2 Previous: 2 ACR TI-RADS category: 2 Previous: 2 Significant change in size (>/= 20% in 2 dimensions and minimal increase of 2 mm or 50% or greater increase in volume): No Change in features: No Change in ACR TI-RADS risk category: No NODES: No lymphadenopathy is seen in the tissue surrounding the thyroid gland. US/US thyroid IMPRESSION: 1. There is a 1.4 cm TI-RADS 4 nodule in the left mid pole which meets criteria for follow-up. 2. The other nodule is a 1.7 cm TI-RADS 2 nodule. No follow-up indicated. ACR TI-RADS RECOMMENDATION REFERENCE: Ultrasound-guided fine-needle aspiration, follow up ultrasound, no further followup. * TR1 (0 point) and TR2 (2 points): No FNA or followup * TR3 (3 points): FNA if more than or equal to 2.5 cm in maximum dimension, follow up ultrasound in 1, 3 and 5 years if 1.5 to 2.4 cm in maximum dimension. * TR4 (4-6 points): FNA if more than or equal to 1.5 cm in maximum dimension, follow up ultrasound in 1, 2, 3 and 5 years if 1 to 1.4 cm in maximum dimension. * TR5 (more than or equal to 7 points): FNA if more than or equal to 1 cm in maximum dimension, follow up ultrasound every year for 5 years if 0.5 to 0.9 cm in maximum dimension. * TR3, TR4 or TR5 nodules that are below the size threshold for follow up receive no followup.
== END 2023-12-19 08:59 | disposition home or self-care (01) ==
LOC: HO.US 08:58
PROVIDERS: PCP Family Medicine; Visit Provider Family Medicine
DX: E04.1 Nontoxic single thyroid nodule (principal)
CPT/HCPCS: 76536

== ENCOUNTER 2024-01-23 08:46 | Outpatient (AMB) | payer OTHER, SELFPAY ==
[2024-01-23 08:56] VITALS: BP 114/72; BMI 25.3
--- NOTE | 2024-01-23 08:56 | MHC.OFFVIS ---
Vital Signs 01/23/24 08:56 Height 5 ft 6 in Weight 157 lb BMI 25.3 BP 114/72 Intake Visit Reasons: EMB Computer Education Teacher: Computer Education Teacher Present (Sravani) Allergies penicllin Allergy (Unknown, Uncoded 01/23/24 08:56) unknown HPI Comments Details: Presenting for EMB for proliferative endometrium in menopause complaining of burning on urination over the last few days no fever or chills no nausea or vomiting no flank pain. The patient is doing well with Mirena IUD with no bleeding since insertion [facility] Medical History Irregular periods Family History Mother High blood pressure Father Diabetes Paternal Grandmother High blood pressure Social History Household Members: Significant Other Housing: House Are you a primary personal carer to a significant other at home: No Do you presently have visiting nurse or other home services: No 75 years or older and lives alone: No Alcohol intake: current Alcohol intake frequency: holidays/special occasions only Patient Tobacco Use Status: Never used Tobacco e-Cigarette/Vaping Use: Never Used Special nilam needs: No service: No Current occupational status: employed 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 Current occupational exposures/hazards: No Sexual orientation: Unable to collect Gender identity: Unable to collect Cognitive needs: No Hearing needs: No Vision needs: Yes (Patient has a difficult time with night vision.) Review of Systems Const All systems reviewed & are unremarkable except as noted in HPI and below Reports as per HPI and Reports no additional complaints GI Reports no additional complaints Reports no additional complaints Physical Exam Vital Signs: Last Vital Signs BP 114/72 01/23/24 08:56 BMI result Body Mass Index 25.3 Office Procedures Endometrial Biopsy Details: The patient was counseled regarding the indication and benefits of endometrial sampling to rule out endometrial pathology including not limited to endometrial hyperplasia or endometrial cancer and others; The alternatives (Either do nothing vs. hysteroscopy D&C) & the risks were discussed with the patient including but not limited: pain, uterine perforation, bleeding, infection, possible injury to bladder, bowel, ureter, possible need for blood transfusion with all its possible risks. The patient verbalized understanding all questions answered and signed consent. The patient was placed into the dorsal lithotomy position; a speculum was inserted in the vagina. Using aseptic technique for the procedure, the cervix was cleansed with Betadine. The anterior lip of the cervix was grasped with a single tooth tenaculum. The uterus was sounded to 7 cm with a 4 mm Pipelle was used. Tissues samples were obtained and placed in formalin, in a patient labeled container and sent to the pathology department. At the end of the procedure, there was minimal bleeding noted The patient tolerated the procedure well and was discharged in good condition with the following instructions: Nothing in the vagina until the bleeding stops. No sex until the bleeding stops, to call if any of the following occurs: fever (>100.4), flu-like symptoms, abdominal pain, heavy bleeding, four smelling vaginal discharge. The patient was instructed to schedule a Follow up appointment in 2 weeks to discuss pathology results of the biopsy and treatment options. This note was generated with a voice recognition program. Some errors may have been overlooked during the review of this note. Sometimes these errors may affect the content or meaning of a given sentence. [id number] Biopsy Results AMB Test Urine AMB Test Urine Cancelled Last Edit by LAZARUS Garcia on 01/23/24 09:22 AMB Test Urine previously reported as Negative Stefany Dobson 01/23/24 09:22 CANCELLED no longer needed Results Reviewed Results Reviewed: Laboratory Last Values Tst Clinic Cancelled 01/23/24 09:00 Assessment & Plan Assessment & Plan (1) Abnormal uterine bleeding (AUB): Comment: FSH/LH in menopause range with proliferative endometrium on EMB pathology Mild anemia Code(s): N93.9 - Abnormal uterine and vaginal bleeding, unspecified Category: Medical Plan: EMB done, see procedure Instructions given the patient to schedule a 4 months repeat EMB appointment (2) UTI (urinary tract infection): Comment: Microscopic hematuria Code(s): N39.0 - Urinary tract infection, site not specified Category: Medical Plan: Urine dip showed +2 blood and +2 leukocyte, will send urine for culture and repeat urine dip in 2 weeks. Instructions given the patient to schedule a 2 week follow-up appointment Will treat with differential 100 mg p.o. b.i.d. for 5 days. Instructions given the patient to call in case of fever above 100.4, flank pain, nausea or vomiting or persistence/worsening of her urinary symptoms. All questions answered, the patient verbalized understanding Orders: Orders AMB Endometrial Biopsy Today N93.9 - Abnormal uterine and vaginal bleeding, unspecified Surgical Today N93.9 - Abnormal uterine and vaginal bleeding, unspecified Medications: New nitrofurantoin monohyd/m-cryst 100 mg (Macrobid) 100 mg PO BID 10 caps 0RF 5 days Coding Level of Care Code Est Pt Level 3 (03016) Procedure Only Diagnoses Abnormal uterine bleeding (AUB) N93.9 UTI (urinary tract infection) N39.0 CPT Codes Endometrial Biopsy - CPT: 54084-[id number] Biopsy ([id number])
== END 2024-01-23 10:17 | disposition home or self-care (01) ==
LOC: HO.HWS 08:47
PROVIDERS: PCP Family Medicine; Visit Provider Obstetrics & Gynecology
DX: N39.0 Urinary tract infection, site not specified (principal); N93.9 Abnormal uterine and vaginal bleeding, unspecified; Z32.02 Encounter for pregnancy test, result negative
CPT/HCPCS: 58100; 99213

== ENCOUNTER 2024-01-23 08:46 | Outpatient (REF) | payer OTHER, SELFPAY | END 2024-01-23 08:47 | disposition home or self-care (01) | LOC: HO.LNP 08:46 | PROVIDERS: PCP Family Medicine; Visit Provider Obstetrics & Gynecology | DX: N93.9 Abnormal uterine and vaginal bleeding, unspecified (principal); N39.0 Urinary tract infection, site not specified | CPT/HCPCS: 58100; 81025; 87086; 88305; 99212 ==

== ENCOUNTER 2024-04-22 07:52 | Outpatient (AMB) | payer OTHER, SELFPAY ==
--- NOTE | 2024-04-22 07:55 | MHC.OFFVIS ---
Vital Signs 04/22/24 08:00 Height 5 ft 6 in Weight 156 lb 8.451 oz BMI 25.3 Intake Visit Reasons: EMB/Urine dip Cloth Laminating Supervisor Required: No Information Interpreted: non-clinical & clinical Director Food And Beverage: Director Food And Beverage Present (Sravani QIU) Accompanied by: Self / Same As Patient Allergies penicllin Allergy (Unknown, Uncoded 04/22/24 08:04) unknown Is last menstrual period known: No (mirena) HPI Comments Details: The patient is presenting for endometrial biopsy for proliferative endometrium in menopause 10/05 EMB showed proliferative endometrium 11/05 Mirena IUD inserted 02/04 EMB repeated with pathology showing benign endometrium Urine culture showed no growth PFSH Medical History Irregular periods Family History Mother High blood pressure Father Diabetes Paternal Grandmother High blood pressure Social History Household Members: Significant Other Housing: House Are you a primary aged or disabled carer to a significant other at home: No Do you presently have visiting nurse or other home services: No 75 years or older and lives alone: No Alcohol intake: current Alcohol intake frequency: holidays/special occasions only Patient Tobacco Use Status: Never used Tobacco e-Cigarette/Vaping Use: Never Used Special nilam needs: No service: No Current occupational status: employed 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 Current occupational exposures/hazards: No Sexual orientation: Unable to collect Gender identity: Unable to collect Cognitive needs: No Hearing needs: No Vision needs: Yes (Patient has a difficult time with night vision.) Review of Systems Const All systems reviewed & are unremarkable except as noted in HPI and below Reports as per HPI and Reports no additional complaints GI Reports no additional complaints Reports no additional complaints Physical Exam Vital Signs: BMI result Body Mass Index 25.3 Office Procedures Endometrial Biopsy Details: The patient was counseled regarding the indication and benefits of endometrial sampling to rule out endometrial pathology including not limited to endometrial hyperplasia or endometrial cancer and others; The alternatives (Either do nothing vs. hysteroscopy D&C) & the risks were discussed with the patient including but not limited: pain, uterine perforation, bleeding, infection, possible injury to bladder, bowel, ureter, possible need for blood transfusion with all its possible risks. The patient verbalized understanding all questions answered and signed consent. The patient was placed into the dorsal lithotomy position; a speculum was inserted in the vagina. Using aseptic technique for the procedure, the cervix was cleansed with Betadine. The anterior lip of the cervix was grasped with a single tooth tenaculum. The uterus was sounded to 7 cm with a 4 mm Pipelle was used. Tissues samples were obtained and placed in formalin, in a patient labeled container and sent to the pathology department. At the end of the procedure, there was minimal bleeding noted The patient tolerated the procedure well and was discharged in good condition with the following instructions: Nothing in the vagina until the bleeding stops. No sex until the bleeding stops, to call if any of the following occurs: fever (>100.4), flu-like symptoms, abdominal pain, heavy bleeding, four smelling vaginal discharge. The patient was instructed to schedule a Follow up appointment in 2 weeks to discuss pathology results of the biopsy and treatment options. This note was generated with a voice recognition program. Some errors may have been overlooked during the review of this note. Sometimes these errors may affect the content or meaning of a given sentence. [id number] Biopsy Results AMB Test Urine AMB Test Urine Negative Last Edit by Sravani Bradshaw CMA on 04/22/24 08:11 Assessment & Plan Assessment & Plan (1) Microscopic hematuria: Code(s): R31.29 - Other microscopic hematuria Category: Medical Plan: Repeat urine dip showed persistent microscopic hematuria, will order CT scan and refer to urology for further management. Instructed the patient to call our office back in case a referral appointment is not scheduled, missed or canceled so that we will assist on rescheduling another appointment, the patient verbalized understanding agreed with the plan. (2) Abnormal uterine bleeding (AUB): Comment: FSH/LH in menopause range with proliferative endometrium on EMB pathology 10/05 02/04 benign endometrial Code(s): N93.9 - Abnormal uterine and vaginal bleeding, unspecified Category: Medical Plan: EMB done, see procedure note Orders: Orders AMB Endometrial Biopsy Today N93.9 - Abnormal uterine and vaginal bleeding, unspecified AMB HCG Urine Test Today Z32.02 - Encounter for test, result negative CT abdomen pelvis wo/w IV con Today R31.29 - Other microscopic hematuria Referrals Urology Referral R31.29 - Other microscopic hematuria Coding Level of Care Code Est Pt Level 3 (26895) Procedure Only Diagnoses Microscopic hematuria R31.29 Abnormal uterine bleeding (AUB) N93.9 CPT Codes Endometrial Biopsy - CPT: 66492-Blsiziovjde Biopsy ([id number])
[2024-04-22 08:00] VITALS: BMI 25.3
== END 2024-04-22 08:29 | disposition home or self-care (01) ==
PROVIDERS: PCP Family Medicine; Visit Provider Obstetrics & Gynecology
DX: R31.29 Other microscopic hematuria (principal); N93.9 Abnormal uterine and vaginal bleeding, unspecified; Z32.02 Encounter for pregnancy test, result negative
CPT/HCPCS: 58100; 99213

== ENCOUNTER 2024-04-22 07:52 | Outpatient (REF) | payer OTHER, SELFPAY | END 2024-04-22 07:53 | disposition home or self-care (01) | LOC: HO.LNP 07:52 | PROVIDERS: PCP Family Medicine; Visit Provider Obstetrics & Gynecology | DX: N93.9 Abnormal uterine and vaginal bleeding, unspecified (principal); R31.29 Other microscopic hematuria; Z97.5 Presence of (intrauterine) contraceptive device; Z32.02 Encounter for pregnancy test, result negative | CPT/HCPCS: 58100; 81025; 88305; 99212 ==

== ENCOUNTER 2024-04-30 13:44 | Outpatient (AMB) | payer OTHER, SELFPAY ==
--- NOTE | 2024-04-30 13:45 | MHC.OFFVIS ---
Intake Visit Reasons: EMB results Allergies penicllin Allergy (Unknown, Uncoded 04/22/24 08:04) unknown HPI Comments Details: The patient scheduled a telehealth visit for follow-up to discuss the results of her EMB Endometrial biopsy pathology showed the following: 'Fragments of inactive endometrium with pseudodecidual change consistent with exogenous progestin and breakdown with abundant fibrinoid and necroinflammatory material; no atypia identified: Co testing was done in 06/06 was negative. Mammogram was done in 06/06 was BI-RADS 1, screening mammogram will schedule an 06/07 FSH/LH in menopause range with proliferative endometrium on EMB pathology 10/05 11/05 Mirena IUD inserted 02/04 benign endometrial 05/07 inactive endometrium PFSH Medical History Irregular periods Family History Mother High blood pressure Father Diabetes Paternal Grandmother High blood pressure Social History Household Members: Significant Other Housing: House Are you a primary auto care center manager to a significant other at home: No Do you presently have visiting nurse or other home services: No 75 years or older and lives alone: No Alcohol intake: current Alcohol intake frequency: holidays/special occasions only Patient Tobacco Use Status: Never used Tobacco e-Cigarette/Vaping Use: Never Used Special nilam needs: No service: No Current occupational status: employed 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 Current occupational exposures/hazards: No Sexual orientation: Unable to collect Gender identity: Unable to collect Cognitive needs: No Hearing needs: No Vision needs: Yes (Patient has a difficult time with night vision.) Review of Systems Const All systems reviewed & are unremarkable except as noted in HPI and below Reports as per HPI and Reports no additional complaints GI Reports no additional complaints Reports no additional complaints Telehealth Telehealth Telehealth Platform: Telephone Location of provider rendering services: practice address Location of patient: address on file Patient Identification confirmed using: Name, : Yes Telehealth method: video Patient verbally consented to treatment: Yes Patient verbally consented to billing insurance company: Yes Patient informed of any privacy concerns related to visit: Yes Assessment & Plan Assessment & Plan (1) Abnormal uterine bleeding (AUB): Comment: FSH/LH in menopause range with proliferative endometrium on EMB pathology 10/05 02/04 benign endometrial 05/07 inactive endometrium Code(s): N93.9 - Abnormal uterine and vaginal bleeding, unspecified Category: Medical Plan: Discussed with the patient the results the EMB pathology showing inactive endometrium, recommended repeat EMB in 4 months. Instructions given the patient to call in case of vaginal bleeding. All questions answered, the patient verbalized understanding. I spent a total of 20 minutes reviewing the chart, talking to the patient via video and documenting in the medical record. Coding Level of Care Code Tele Est Pt Level 1 (41355) Diagnoses Abnormal uterine bleeding (AUB) N93.9
== END 2024-04-30 15:40 | disposition home or self-care (01) ==
LOC: HO.HWS 13:45
PROVIDERS: PCP Family Medicine; Visit Provider Obstetrics & Gynecology
DX: N93.9 Abnormal uterine and vaginal bleeding, unspecified (principal)
CPT/HCPCS: 99211

== ENCOUNTER → 2024-04-30 13:44 | Outpatient (BNVA) | payer OTHER, SELFPAY | PROVIDERS: PCP Family Medicine; Visit Provider Obstetrics & Gynecology ==

== ENCOUNTER 2024-05-15 07:06 | Outpatient (REF) | payer OTHER, SELFPAY ==
--- NOTE | ~2024-05-15 | MM_ITS ---
EXAMINATION: MM SCREENING DIGITAL BREAST TOMOSYNTHESIS, BILATERAL CLINICAL INFORMATION: Screening. Asymptomatic. COMPARISON: Mammography: Comparison is made with available priors TECHNIQUE: Digital breast mammography with tomosynthesis is performed in both the craniocaudal and mediolateral oblique views along with computer-aided detection (CAD). FINDINGS: The breasts are heterogeneously dense, which may obscure small masses (ACR BI-RADS breast composition Category c). There are no significant masses, abnormal calcifications, or other abnormalities. MM/MM tomosynthesis screening BI IMPRESSION: No mammographic evidence of malignancy. ASSESSMENT: BI-RADS BI-RADS 1 - Negative RECOMMENDATION: Routine annual mammography screening. 1 year F/U This examination should not preclude the clinical evaluation of a suspicious palpable abnormality. This patient's information was entered into a reminder system with a target due date for their next mammogram. Electronically signed by: Mercedes Faulkner DO 05/22/2024 11:49 AM BIN
== END 2024-05-15 07:07 | disposition home or self-care (01) ==
LOC: HO.MAMMO 07:06
PROVIDERS: PCP Family Medicine; Visit Provider Family Medicine
DX: Z12.31 Encounter for screening mammogram for malignant neoplasm of breast (principal)
CPT/HCPCS: 77063; 77067

== ENCOUNTER → 2024-05-15 07:30 | Outpatient (BNV) | payer OTHER, SELFPAY | PROVIDERS: PCP Family Medicine; Visit Provider Internal Medicine | DX: Z12.31 Encounter for screening mammogram for malignant neoplasm of breast (principal) | CPT/HCPCS: 77063; 77067 ==

== ENCOUNTER 2024-06-16 | Outpatient (REF) | payer OTHER, SELFPAY | END 2024-06-16 00:01 | disposition home or self-care (01) | LOC: CF | PROVIDERS: PCP Family Medicine; Visit Provider Urology | DX: R31.29 Other microscopic hematuria (principal) | CPT/HCPCS: 81003; 99202 ==

== ENCOUNTER 2024-06-16 12:56 | Outpatient (AMB) | payer OTHER, SELFPAY ==
--- NOTE | 2024-06-16 13:01 | MHC.OFFVIS ---
Intake Visit Reasons: Microhematuria/UTI Intake Note: Patient is present for MICROHEMATURIA/UTI Urology Medication:NONE Antibiotic Allergy:PENICILLIN Blood Thinner:NONE Extractions Technician Required: No Allergies penicllin Allergy (Unknown, Uncoded 06/16/24 13:02) unknown HPI Comments Details: Kayleen is a pleasant female. She is a patient of Dr. English. She is seen for the following urologic conditions - microscopic hematuria - recurrent UTI Microscopic hematuria Persistent Has had evaluation with obstetrician/gynecologist with endometrial biopsy - fibrinoid and necroinflammatory tissue. No atypia. FSH/LH in menopausal range - Has hormonal IUD Needs low risk criteria for microscopic hematuria. Recommend renal ultrasound with six-month follow-up. May benefit from cystoscopy if required. [facility] Medical History Irregular periods Family History Mother High blood pressure Father Diabetes Paternal Grandmother High blood pressure Social History Household Members: Significant Other Housing: House Are you a primary hospice care sales consultant to a significant other at home: No Do you presently have visiting nurse or other home services: No 75 years or older and lives alone: No Alcohol intake: current Alcohol intake frequency: holidays/special occasions only Patient Tobacco Use Status: Never used Tobacco e-Cigarette/Vaping Use: Never Used Special nilam needs: No service: No Current occupational status: employed 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 Current occupational exposures/hazards: No Sexual orientation: Unable to collect Gender identity: Unable to collect Cognitive needs: No Hearing needs: No Vision needs: Yes (Patient has a difficult time with night vision.) Review of Systems Const Denies chills and Denies fever(s) Card Reports no additional complaints and Denies syncope Resp Denies cough GI Denies abdominal pain and Denies heartburn Reports as per HPI and Denies change in libido Neuro Denies syncope Psych Denies change in libido Endo Denies change in libido Physical Exam Const General: cooperative, healthy appearing, comfortable and no acute distress Orientation/consciousness: patient oriented x3 HEENT Face and sinus: Yes normal facial exam Mouth: moist mucous membranes Neck Neck: Yes normal visual inspection, Yes full ROM and Yes trachea midline Chest Chest palpation & inspection: normal inspection of the chest Resp Effort & Inspection: normal respiratory effort, able to speak in complete sentences and no respiratory distress GI Inspection: Yes normal to inspection Back/Spine/Pelvis Cervical Spine: normal cervical lordosis Thoracic/Lumbar Spine: thoracic and lumbar spine normal to inspection Skin General skin exam: no rashes or lesions noted Neuro General: patient oriented x3, gait normal, tone normal and moves all extremities Extrem General: Yes normal to inspection and Yes capillary refill normal Results AMB Urinalysis, Automated UA Leukoctes 0 Cipriano/uL Last Edit by NICOLA Seymour on 06/16/24 13:29 UA Nitrite Negative Last Edit by NICOLA Seymour on 06/16/24 13:29 UA Urobilinogen 0.2 mg/dL Last Edit by NICOLA Seymour on 06/16/24 13:29 UA Protein 0 mg/dL Last Edit by NICOLA Seymour on 06/16/24 13:29 UA pH 6.5 Last Edit by NICOLA Seymour on 06/16/24 13:29 UA Blood 80 Valentin/uL Last Edit by NICOLA Seymour on 06/16/24 13:29 UA Specific [place] 1.015 Last Edit by NICOLA Seymour on 06/16/24 13:29 UA Ketone Negative Last Edit by NICOLA Seymour on 06/16/24 13:29 UA Bilirubin 0 mg/dL Last Edit by NICOLA Seymour on 06/16/24 13:29 UA Glucose 0 mg/dL Last Edit by NICOLA Seymour on 06/16/24 13:29 Assessment & Plan Assessment & Plan (1) Microscopic hematuria: Code(s): R31.29 - Other microscopic hematuria Category: Medical Plan Six-month follow-up Orders: Orders AMB Urinalysis Automated Today Z13.9 - Encounter for screening, unspecified US renal BI 6 Months R31.29 - Other microscopic hematuria Patient Instructions: Imaging studies, laboratory and physical exam results were discussed and reviewed in detail. No major barriers to patient understanding were identified. An opportunity to ask questions regarding the treatment plan was provided. All questions were answered. The patient expressed understanding and agreement with the above treatment plan. The patient is aware they should contact our office by phone for worsening of their current condition or the appearance of new urologic symptoms. Compliance is encouraged with any medications and followup testing that is ordered. It is a privilege to participate in the urologic care of your patient. If you have any questions or concerns regarding treatment for the above conditions, or other urologic issues, please do not hesitate to contact me. The office telephone contact is [phone]. This note is constructed using voice recognition software. While every effort has been made to ensure accuracy speed reading teacher errors may have been included. Yours sincerely, Dr Luciano Austin MD, [facility] - Urology Providers of Expert, Compassionate Care for the Genitourinary System Coding Level of Care Code New Pt Level 3 (10757) Diagnoses Microscopic hematuria R31.29
== END 2024-06-16 13:32 | disposition home or self-care (01) ==
PROVIDERS: PCP Family Medicine; Visit Provider Urology
DX: Z13.9 Encounter for screening, unspecified (principal); R31.29 Other microscopic hematuria
CPT/HCPCS: 99203

== ENCOUNTER 2024-09-01 07:39 | Outpatient (AMB) | payer OTHER, SELFPAY ==
[2024-09-01 07:40] VITALS: BMI 25.2
--- NOTE | 2024-09-01 07:40 | MHC.OFFVIS ---
Vital Signs 09/01/24 07:40 Height 5 ft 6 in Weight 156 lb BMI 25.2 Intake Visit Reasons: EMB Toggler Required: No Information Interpreted: non-clinical & clinical Workers' Compensation Hearings Officer: Workers' Compensation Hearings Officer Present (Sravani QIU) Accompanied by: Self / Same As Patient Allergies penicllin Allergy (Unknown, Uncoded 09/01/24 07:48) unknown Is last menstrual period known: No (mirena) HPI Comments Details: Presenting for repeat EMB, no complaints FSH/LH in menopause range with proliferative endometrium on EMB pathology 10/05 11/05 Mirena IUD inserted 02/04 benign endometrial 05/07 inactive endometrium PFSH Medical History Irregular periods Family History Mother High blood pressure Father Diabetes Paternal Grandmother High blood pressure Social History Household Members: Significant Other Housing: House Are you a primary field care manager to a significant other at home: No Do you presently have visiting nurse or other home services: No 75 years or older and lives alone: No Alcohol intake: current Alcohol intake frequency: holidays/special occasions only Patient Tobacco Use Status: Never used Tobacco e-Cigarette/Vaping Use: Never Used Special nilam needs: No service: No Current occupational status: employed 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 Current occupational exposures/hazards: No Sexual orientation: Unable to collect Gender identity: Unable to collect Cognitive needs: No Hearing needs: No Vision needs: Yes (Patient has a difficult time with night vision.) Review of Systems Const All systems reviewed & are unremarkable except as noted in HPI and below Reports as per HPI and Reports no additional complaints GI Reports no additional complaints Reports no additional complaints Physical Exam Vital Signs: BMI result Body Mass Index 25.2 Office Procedures Endometrial Biopsy Details: The patient was counseled regarding the indication and benefits of endometrial sampling to rule out endometrial pathology including not limited to endometrial hyperplasia or endometrial cancer and others; The alternatives (Either do nothing vs. hysteroscopy D&C) & the risks were discussed with the patient including but not limited: pain, uterine perforation, bleeding, infection, possible injury to bladder, bowel, ureter, possible need for blood transfusion with all its possible risks. The patient verbalized understanding all questions answered and signed consent. The patient was placed into the dorsal lithotomy position; a speculum was inserted in the vagina. Using aseptic technique for the procedure, the cervix was cleansed with Betadine. The anterior lip of the cervix was grasped with a single tooth tenaculum. The uterus was sounded to 7 cm with a 4 mm Pipelle was used. Tissues samples were obtained and placed in formalin, in a patient labeled container and sent to the pathology department. At the end of the procedure, there was minimal bleeding noted The patient tolerated the procedure well and was discharged in good condition with the following instructions: Nothing in the vagina until the bleeding stops. No sex until the bleeding stops, to call if any of the following occurs: fever (>100.4), flu-like symptoms, abdominal pain, heavy bleeding, four smelling vaginal discharge. The patient was instructed to schedule a Follow up appointment in 2 weeks to discuss pathology results of the biopsy and treatment options. This note was generated with a voice recognition program. Some errors may have been overlooked during the review of this note. Sometimes these errors may affect the content or meaning of a given sentence. [id number] Biopsy Results AMB Test Urine AMB Test Urine Negative Last Edit by Sravani Bradshaw CMA on 09/01/24 07:51 Assessment & Plan Assessment & Plan (1) Abnormal uterine bleeding (AUB): Comment: FSH/LH in menopause range with proliferative endometrium on EMB pathology 10/05 02/04 benign endometrial 05/07 inactive endometrium Code(s): N93.9 - Abnormal uterine and vaginal bleeding, unspecified Category: Medical Plan: EMB done, see procedure note Orders: Orders AMB HCG Urine Test Today Z32.02 - Encounter for test, result negative AMB Endometrial Biopsy Today N93.9 - Abnormal uterine and vaginal bleeding, unspecified Coding Level of Care Code Procedure Only Diagnoses Abnormal uterine bleeding (AUB) N93.9 CPT Codes Endometrial Biopsy - CPT: 15294-Pwdkqklbgpo Biopsy ([id number])
== END 2024-09-01 07:59 | disposition home or self-care (01) ==
LOC: HO.HWS 07:39
PROVIDERS: PCP Family Medicine; Visit Provider Obstetrics & Gynecology
DX: N93.9 Abnormal uterine and vaginal bleeding, unspecified (principal); Z32.02 Encounter for pregnancy test, result negative
CPT/HCPCS: 58100

== ENCOUNTER 2024-09-01 07:39 | Outpatient (REF) | payer OTHER, SELFPAY | END 2024-09-01 07:40 | disposition home or self-care (01) | LOC: HO.LNP 07:39 | PROVIDERS: PCP Family Medicine; Visit Provider Obstetrics & Gynecology | DX: N93.9 Abnormal uterine and vaginal bleeding, unspecified (principal) | CPT/HCPCS: 58100; 81025; 88305 ==

== ENCOUNTER 2024-09-15 07:56 | Outpatient (AMB) | payer OTHER, SELFPAY ==
--- NOTE | 2024-09-15 07:58 | A.OFFVIS_ITS ---
Intake Visit Reasons: EMB results Allergies penicllin Allergy (Unknown, Uncoded 09/01/24 07:48) unknown HPI Comments Details: The patient scheduled a telehealth visit for follow-up post EMB Endometrial biopsy pathology showed the following: Endometrium, biopsy: -Benign atrophic endometrium with focal superficial metaplastic changes, necrotic debris with many histiocytes, and focal decidual stromal change consistent with progestin effect; no atypia or carcinoma. -Benign endocervical glandular epithelium. Co testing was done in 06/06 was negative. Mammogram was done in 06/07 was BI-RADS 1 FSH/LH in menopause range with proliferative endometrium on EMB pathology 10/05 11/05 Mirena IUD inserted 02/04 benign endometrial 05/07 inactive endometrium 09/08 benign endometrium PFSH Medical History Irregular periods Family History Mother High blood pressure Father Diabetes Paternal Grandmother High blood pressure Social History Household Members: Significant Other Housing: House Are you a primary career development counselor to a significant other at home: No Do you presently have visiting nurse or other home services: No 75 years or older and lives alone: No Alcohol intake: current Alcohol intake frequency: holidays/special occasions only Patient Tobacco Use Status: Never used Tobacco e-Cigarette/Vaping Use: Never Used Special nilam needs: No service: No Current occupational status: employed 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 Current occupational exposures/hazards: No Sexual orientation: Unable to collect Gender identity: Unable to collect Cognitive needs: No Hearing needs: No Vision needs: Yes (Patient has a difficult time with night vision.) Review of Systems Const All systems reviewed & are unremarkable except as noted in HPI and below Reports as per HPI and Reports no additional complaints GI Reports no additional complaints Reports no additional complaints Telehealth Telehealth Telehealth Platform: Telephone Location of provider rendering services: practice address Location of patient: address on file Patient Identification confirmed using: Name, : Yes Telehealth method: video Patient verbally consented to treatment: Yes Patient verbally consented to billing insurance company: Yes Patient informed of any privacy concerns related to visit: Yes Minutes spent on Phone/Video with Pt.: 2 Assessment & Plan Assessment & Plan (1) Abnormal uterine bleeding (AUB): Comment: FSH/LH in menopause range with proliferative endometrium on EMB pathology 10/05 02/04 benign endometrial 05/07 inactive endometrium 09/08 benign endometrial Code(s): N93.9 - Abnormal uterine and vaginal bleeding, unspecified Category: Medical Plan: Discussed with the patient the results the pathology. Instructions given the patient to call in case abnormal bleeding occur and schedule mammogram in 06/08 otherwise follow-up in the next annual exam appointment. All questions answered, the patient verbalized understanding. I spent a total of 20 minutes reviewing the chart, talking to the patient via video and documenting in the medical record. Coding Level of Care Code Tele Est Pt Level 3 (33583) Diagnoses Abnormal uterine bleeding (AUB) N93.9
== END 2024-09-15 08:17 | disposition home or self-care (01) ==
LOC: HO.HWS 07:56
PROVIDERS: PCP Family Medicine; Visit Provider Obstetrics & Gynecology
DX: N93.9 Abnormal uterine and vaginal bleeding, unspecified (principal)
CPT/HCPCS: 99213

== ENCOUNTER → 2024-09-15 07:56 | Outpatient (BNVA) | payer OTHER, SELFPAY | PROVIDERS: PCP Family Medicine; Visit Provider Obstetrics & Gynecology ==

== ENCOUNTER 2024-12-09 13:27 | Outpatient (REF) | payer OTHER, SELFPAY ==
--- NOTE | ~2024-12-09 | US_ITS ---
EXAMINATION: US THYROID HISTORY: E04.1 - Nontoxic single thyroid nodule TECHNIQUE: Real-time grayscale ultrasound imaging was performed and images were reviewed. COMPARISON: Comparison is made with the prior examination dated 12/19/2023. FINDINGS: SIZE: The right thyroid lobe measures 4.6 x 1.9 x 1.2 cm. The left thyroid lobe measures 4.9 x 1.9 x 1.3 cm. The isthmus measures 2 mm. FLOW: Flow to the gland is normal. ECHOGENICITY: The echotexture of the gland is homogeneous. NODULES: Again seen left thyroid nodules as described below: Nodule #: 1 Location: Mid to lower pole of the left thyroid lobe measuring 1.4 x 1.2 x 0.8 cm (previously 1.4 x 0.7 x 1.1 cm). Shape: Wider than tall (0 points) Margins: Smooth (0 points) Echotexture: Very hypoechoic (3 points) Composition: Solid (2 points) Calcifications: None (0 points) Total points: 5 TIRADS: TR4: Moderately suspicious. Nodule #: 2 Location: Mid to upper pole of the left thyroid lobe measuring 1.8 x 1.0 x 1.0 cm (previously 1.7 x 0.7 x 1.2 cm). Shape: Wider than tall (0 points) Margins: Smooth (0 points) Echotexture: Isoechoic (1 point) Composition: Mixed (1 point) Calcifications: None (0 points) Total points: 2 TIRADS: TR2: Not suspicious US/US thyroid IMPRESSION: Stable left thyroid nodules as described. Continued follow-up is recommended. ACR TI-RADS Guidelines TR1 (0 points): Benign, No follow-up or biopsy required TR2 (2 points): Not Suspicious, No biopsy or follow up indicated TR3 (3 points): Mildly Suspicious, FNA if >= 2.5 cm, Follow if >= 1.5 cm TR4 (4-6 points): Moderately Suspicious, FNA if >= 1.5 cm, Follow if >= 1.0 cm TR5 (>=7 points): Highly Suspicious, FNA if >= 1.0 cm, Follow if >= 0.5 cm Electronically signed by: Srini Ceron MD 12/09/2024 02:40 PM EDT
--- NOTE | ~2024-12-09 | US_ITS ---
EXAMINATION: US KIDNEY BILATERAL HISTORY: R31.29 - Other microscopic hematuria TECHNIQUE: Real-time grayscale ultrasound imaging of the kidneys was performed and images were reviewed. COMPARISON: There are no prior studies for comparison. FINDINGS: Right kidney: The right kidney measures 10.6 x 4.1 x 5.3 cm. Renal parenchymal echotexture and thickness are normal. There are no masses. There is no hydronephrosis or renal calculi. Left Kidney: The left kidney measures 11.1 x 4.9 x 5.3 cm. Renal parenchymal echotexture and thickness are normal. There are no masses. There is no hydronephrosis or renal calculi. US/US renal BI IMPRESSION: Unremarkable renal ultrasound. Electronically signed by: Srini Ceron MD 12/09/2024 02:33 PM EDT
== END 2024-12-09 13:28 | disposition home or self-care (01) ==
LOC: HO.US 13:27
PROVIDERS: PCP Family Medicine; Visit Provider Urology
DX: R31.29 Other microscopic hematuria (principal); E04.1 Nontoxic single thyroid nodule
CPT/HCPCS: 76536; 76775

== ENCOUNTER → 2024-12-09 13:29 | Outpatient (BNV) | payer OTHER, SELFPAY | PROVIDERS: PCP Family Medicine; Visit Provider Radiology Diagnostic Radiology | DX: R31.29 Other microscopic hematuria (principal); E04.1 Nontoxic single thyroid nodule | CPT/HCPCS: 76536; 76775 ==

== ENCOUNTER 2025-05-21 07:44 | Outpatient (REF) | payer OTHER, SELFPAY ==
--- NOTE | ~2025-05-21 | MM_ITS ---
EXAMINATION: MM SCREENING DIGITAL BREAST TOMOSYNTHESIS, BILATERAL CLINICAL INFORMATION: Screening. Asymptomatic. COMPARISON: Mammography: Comparison is made with available priors TECHNIQUE: Digital breast mammography with tomosynthesis is performed in both the craniocaudal and mediolateral oblique views along with computer-aided detection (CAD). FINDINGS: There are scattered areas of fibroglandular density. There are no significant masses, abnormal calcifications, or other abnormalities. MM/MM tomosynthesis screening BI IMPRESSION: No mammographic evidence of malignancy. ASSESSMENT: BI-RADS Category 1: Negative RECOMMENDATION: Routine annual mammography screening. 1 year F/U This examination should not preclude the clinical evaluation of a suspicious palpable abnormality. This patient's information was entered into a reminder system with a target due date for their next mammogram. Electronically signed by: Mercedes Faulkner DO 05/25/2025 09:14 AM BIN
== END 2025-05-21 07:45 | disposition home or self-care (01) ==
LOC: HO.MAMMO 07:44
PROVIDERS: PCP Family Medicine; Visit Provider Family Medicine
DX: Z12.31 Encounter for screening mammogram for malignant neoplasm of breast (principal)
CPT/HCPCS: 77063; 77067

== ENCOUNTER → 2025-05-21 07:45 | Outpatient (BNV) | payer OTHER, SELFPAY | PROVIDERS: PCP Family Medicine; Visit Provider Internal Medicine | DX: Z12.31 Encounter for screening mammogram for malignant neoplasm of breast (principal) | CPT/HCPCS: 77063; 77067 ==